=== PATIENT | female | born 1980 | race Caucasian/White ===

== ENCOUNTER 2016-08-29 23:30 | Emergency (ER) | payer OTHER ==
[2016-08-30 00:36] LABS: AMPHETAMINES LEVEL URINE NEGATIVE (NEGATIVE); BENZODIAZEPINES URINE NEGATIVE (NEGATIVE); COCAINE METABOLITE URINE NEGATIVE (NEGATIVE); CONTROL LINE INT CTR LINE PRESENT; METHADONE URINE NEGATIVE (NEGATIVE); OPIATES URINE NEGATIVE (NEGATIVE); TRICYCLIC ANTIDEPRESS URINE NEGATIVE (NEGATIVE)
[2016-08-30 03:02] LABS: BASO % 0.3 % (0.0-1.0); EOS # 0.1 K/mm3 (0.0-0.50); LARGE UNSTAINED CELL # 0.1 K/mm3 (0.0-0.4); LYMPH # 2.1 K/mm3 (1.5-4.5); LYMPH % 36.8 % (24.0-44.0); MEAN CORPUSCULAR HEMOGLOBIN 31.9 pg (27.0-33.0); MEAN CORPUSCULAR HGB CONC 35.9 g/dl (32.0-36.5); MONO # 0.2 K/mm3 (0.0-0.8); NEUTROPHILS # 3.2 K/mm3 (1.8-7.7); NEUTROPHILS % 55.8 % (36.0-66.0); PLATELET COUNT, AUTOMATED 244 k/mm3 (150-450); RED CELL DISTRIBUTION WIDTH 12.5 % (11.5-14.5); WHITE BLOOD COUNT 5.7 K/mm3 (4.0-10.0)
[2016-08-30] MEDS ORDERED: MORPHINE 2 MG/ML 1ML SYRINGE As Ordered ONE (03:20)
[2016-08-30] MEDS ORDERED: ONDANSETRON 4MG/2ML VIAL (J2405) As Ordered ONE (03:20)
[2016-08-30 03:23] LABS: CONTROL LINE HCG INT CTR LINE PRESENT
[2016-08-30 03:30] LABS: ALBUMIN 4.1 GM/DL (3.2-5.2); ALBUMIN/GLOBULIN RATIO 1.21 (1.00-1.93); ALKALINE PHOSPHATASE 59 U/L (45-117); ALT/SGPT 29 U/L (12-78); AMYLASE 75 U/L (25-115); ANION GAP 12 MEQ/L (8-16); AST/SGOT 24 U/L (15-37); BILIRUBIN,DIRECT < 0.1 MG/DL (0.0-0.2); BILIRUBIN,TOTAL 0.3 MG/DL (0.2-1.0); BLOOD UREA NITROGEN 16 MG/DL (7-18); CARBON DIOXIDE LEVEL 25 MEQ/L (21-32); CHLORIDE LEVEL 109 MEQ/L (98-107); CREATININE FOR GFR 0.73 MG/DL (0.55-1.02); GLOMERULAR FILTRATION RATE > 60.0 (>60); GLUCOSE, FASTING 85 MG/DL (70-105); POTASSIUM SERUM 3.8 MEQ/L (3.5-5.1); SODIUM LEVEL 146 MEQ/L (136-145); TOTAL PROTEIN 7.5 GM/DL (6.4-8.2)
[2016-08-30] MEDS ORDERED: METOCLOPRAMIDE INJ 10MG/2ML VIAL (J2765) As Ordered ONE (03:56)
--- NOTE | 2016-08-30 04:30 | REPUSA ---
CLINICAL HISTORY: Abdominal pain. TECHNIQUE: Multiple axial, sagittal and coronal CT images were obtained through the abdomen and pelvi s without administration of oral or IV contrast material. COMMENTS: The liver is of uniform attenuation without mass or defect. There is no intra or extrahepatic biliary ductal dilatation. The spleen is normal. The gallbladder is surgically absent. The pancreas is of no rmal contour and attenuation characteristics. There is no evidence of adrenal mass. Mild fullness of the left collecting system. The kidneys are normal in size, shape and configuration. No renal or ureteral calculi are identified. There is no right hydroureter or hydronephrosis. There is no evidence for appendicitis. There is no bowel wall thickening. No evidence for small or la rge bowel obstruction. There is no evidence of abdominal ascites or lymphadenopathy. There is no evidence of intrinsic or extrinsic bladder mass. There is no pelvic ascites or lymphadeno della. Images of the lung bases show no evidence of pleural or parenchymal mass. There are no pleural effusi ons. The bony structures are free of lytic or blastic lesions. Multilevel degenerative changes are seen in volving the thoracolumbar spine. Scattered calcifications are seen involving the aorta and major branches compatible with atherosclero sis. IMPRESSION: Mild fullness of the left collecting system. Recent passage of a calculus versus an ascending urinary tract infection. Prior cholecystectomy. Thank you for your kind referral of this patient.
--- NOTE | 2016-08-30 05:50 | EDDOCDS ---
Nurse's Notes [facility] Name: Rimma Rae Age: 36 yrs Sex: Female : 1980 Arrival Date: 08/29/2016 Time: 23:30 Bed 9 Private MD: [facility] Diagnosis: Alcoholic gastritis without bleeding;Alcohol use, unspecified with intoxication Presentation: 08/29 23:42 Presenting complaint: Patient states: Left upper quadrant pain that began earlier lf1 today- history of pancreatitis related to alcohol abuse. Pt. reports she started increasing her alcohol intake today and had increased pain in her upper left quadrant. Pain is currently 8/10 with vomiting . Pt. is crying in triage area. Mental Health Triage Level: Level 1- Pt displays no suicidal or homicidal ideations and does not appear to be a danger to self or others. Adult Sepsis Screening: The patient does not have new or worsening altered mentation. Patient has a respiratory rate of greater than or equal to 22 (1 point). Systolic blood pressure is greater than 100. Patient has a qSOFA score of 1- Negative Sepsis Screen. Mental Health Triage Level: Level 1- Pt displays no suicidal or homicidal ideations and does not appear to be a danger to self or others. Suicide/Homicide risk assessment- the patient denies having any suicidal and/or homicidal ideations and does not present with any other emotional, behavioral or mental health complaints. Status: The patient is a dependent. Transition of care: patient was not received from another setting of care. 23:42 Acuity: BERENICE Level 3 lf1 23:42 Method Of Arrival: Wheelchair lf1 Triage Assessment: 23:47 General: Appears distressed, Behavior is anxious, crying, restless. Pain: Location: lf1 left upper quadrant Pain currently is 8 out of 10 on a pain scale. Noted to be crying, moaning. HIV screening NA for this visit Offered previously. Neurological: Level of Consciousness is awake, alert, Oriented to person, place, time. EENT: No deficits noted. Cardiovascular: Chest pain is denied. Respiratory: Respiratory effort is pursed lip, Respiratory pattern is regular. GI: Reports upper abd pain, nausea, vomiting. : No deficits noted. Derm: Skin is normal. Injury Description: No known injury. HUMAN RESOURCE INTERNSHIP: 23:47 4, 1, Living 3, LMP 08/19/2016 lf1 Historical: - Allergies: Phenobarbitalseizure; IVP dye; - Home Meds: 1. none - PMHx: Alcoholism; Hypertension; - PSHx: Carpal Tunnel Repair- Right (November 03, 2014); Cholecystectomy; D & C; Tubal ligation; - Social history: Smoking status: Patient uses tobacco products, current every day smoker. No barriers to communication noted, The patient speaks fluent Micronesian, Speaks appropriately for age, Preferred Language: Micronesian. - Family history: No immediate family members are acutely ill. - : The pt / caregiver states he / she is not on anticoagulants. Home medication list is obtained from the patient. - Exposure Risk Screening:: None identified. Screenin:49 Screening information is obtained from the patient. Fall risk: No risks identified. lf1 Assistance ADL's: requires no assistance with activities of daily living. Abuse/DV Screen: The patient / caregiver reports he/she is: not in a situation that causes fear, pain or injury. Nutritional screening: No deficits noted. Advance Directives: Currently, there is no health care proxy. home support is adequate. Assessment: 08/30 02:58 General: Appears in no apparent distress, uncomfortable, Behavior is anxious, nn1 appropriate for age, cooperative. General: Patient reports intensity of pain is intermittent. Patient reports vomiting comes with severe pain. . Pain: Location: left low back and left upper quadrant. Pain: Quality of pain is described as aching, sharp. Neurological: Level of Consciousness is awake, alert, obeys commands. Respiratory: Airway is patent Respiratory effort is even, unlabored, Respiratory pattern is regular, symmetrical, Breath sounds are clear bilaterally. GI: Abdomen is non- distended Pt is actively vomiting bile, Bowel sounds present X 4 quads. Abd is soft X 4 quads Abd is tender to palpation in left upper quadrant and left lower quadrant Reports nausea, vomiting, intolerance of fluids. Derm: Skin is pink, warm & dry. 04:14 General: Patient was actively vomiting, patient medicated per orders. . Neurological: nn1 Level of Consciousness is awake, alert, obeys commands. 04:56 General: Patient ambulated to restroom, gait is steady. Patient reports nausea, states nn1 pain has improved at this time. . 05:08 General: Patient reports she continues to feel nauseous but nausea has improved. nn1 Patient states pain continues to be 5/10, states she believes this is due to the dry heaving. . 05:45 General: Appears in no apparent distress, comfortable, Behavior is appropriate for age, nn1 cooperative. Neurological: Level of Consciousness is awake, alert. Respiratory: Airway is patent Respiratory effort is even, unlabored, Respiratory pattern is regular, symmetrical. Derm: Skin is pink, warm & dry. 05:49 Pain: Pain currently is 4 out of 10 on a pain scale. nn1 Vital Signs: 08/29 23:32 BP 167 / 112; Pulse 104; Resp 24 S; Pulse Ox 100% on R/A; Weight 83.91 kg (R); Height 5 dd6 ft. 6 in. (167.64 cm) (R); 08/30 00:44 BP 140 / 63 (auto/); nn1 00:44 Pulse 100 MON; Pulse Ox 92% ; nn1 01:01 BP 136 / 89; Pulse 102; Resp 18; Temp 96.4; Pulse Ox 98% ; Pain 9/10; jlm 01:46 BP 130 / 74 (auto/); nn1 01:47 Pulse 76 MON; Pulse Ox 96% ; nn1 02:56 Pulse 80 MON; Pulse Ox 96% ; nn1 02:56 BP 129 / 72 (auto/); nn1 03:26 BP 130 / 74 (auto/); nn1 03:26 Pulse 74 MON; Pulse Ox 98% ; nn1 03:56 BP 126 / 76 (auto/); nn1 03:56 Pulse 70 MON; Pulse Ox 99% ; nn1 04:26 BP 121 / 90 (auto/); nn1 04:26 Pulse 78 MON; Pulse Ox 98% ; nn1 05:48 BP 103 / 67; Pulse 70; Resp 20; Temp 97.5(TE); Pulse Ox 96% on R/A; Pain 4/10; nn1 08/29 23:32 Body Mass Index 29.86 (83.91 kg, 167.64 cm) dd6 Vitals: 08/29 23:32 Log In Time: August 29, 2016 at 23:30. dd6 ED Course: 23:32 Patient visited by Kosta Singh, BERKLEY. dd6 23:32 [facility] [place] Physician. dd6 23:32 Patient moved to Waiting dd6 23:34 Patient moved to Pre RCE dd6 23:45 Triage Initiated lf1 08/30 00:04 Urine Toxicology Sent. ajs 00:04 Urinalysis Sent. ajs 00:07 Patient visited by Melisa Perez. ajs 00:35 pt was observed outside being wheeled back towards the ER entrance by significant other.ajs 01:03 Patient visited by Marilu Iverson, Glass Sander Belt. jlm 02:37 Patient moved to 9 sls1 02:41 Kavin Dumas DO is Attending Physician. mm11 02:41 Patient visited by Kavin Dumas DO. mm11 02:57 ETOH Sent. nn1 02:57 HCG,Serum Qualitative Sent. nn1 02:57 Amylase Sent. nn1 02:57 Basic Metabolic Profile Sent. nn1 02:57 CBC with Diff Sent. nn1 02:57 Lipase Sent. nn1 02:57 Liver Profile Sent. nn1 02:59 Inserted saline lock: 20 gauge in left antecubital area and blood collected. The nn1 patient tolerated the procedure well. 03:13 Patient visited by Sara Hood RN. nn1 03:18 Patient visited by Kavin Dumas DO. mm11 04:03 Patient visited by Kavin Dumas DO. mm11 04:36 CT ABD & PELVIS: No Contrast Returned. EDMS 04:38 Patient visited by Sara Hood RN. nn1 05:08 [facility] Payment Agreement was scanned into [employer] and attached to record. [facility] 05:15 Patient visited by Kavin Dumas DO. mm11 05:22 [facility] [place] Referral Physician. mm11 05:47 No procedures done that require assistance. nn1 05:48 The patient / caregiver is instructed regarding the plan of care and ED course. nn1 Administered Medications: 02:57 Drug: NS 0.9% 1000 ml [sodium chloride 0.9 % intravenous solution] Route: IV; Rate: nn1 bolus; Site: left antecubital; 03:24 Drug: morphine 2 mg [morphine 4 mg/mL intravenous cartridge (0.5 mL)] Route: IVP; Site: nn1 left antecubital; 03:24 Drug: Ondansetron 4 mg [ondansetron HCl 2 mg/mL intravenous solution (2 mL)] Route: nn1 IVP; Site: left antecubital; 04:14 Drug: Metoclopramide 10 mg [metoclopramide 5 mg/mL injection solution] Route: IV; Rate: nn1 40 mg/hr; Infused Over: 15 mins; Site: left antecubital; Point of Care Testing: Urine : 00:06 hCG Reading: Negative; Control Reading: Positive; ajs Ranges: Order Results: Lab Order: Urinalysis; SPEC'M 08/30/16 00:04 Test: APPEARANCE, URINE; Value: HAZY; Range: CLEAR; Status: F Test: COLOR, URINE; Value: YELLOW; Range: YELLOW; Status: F Test: PH,URINE; Value: 6.0; Range: 5.0-9.0; Units: UNITS; Status: F Test: SPECIFIC GRAVITY URINE AUTO; Value: 1.010; Range: 1.002-1.035; Status: F Test: PROTEIN, URINE AUTO; Value: NEGATIVE; Range: NEGATIVE; Units: mg/dL; Status: F Test: GLUCOSE, URINE (UA) AUTO; Value: NEGATIVE; Range: NEGATIVE; Units: mg/dL; Status: F Test: KETONE, URINE AUTO; Value: NEGATIVE; Range: NEGATIVE; Units: mg/dL; Status: F Test: UROBILINOGEN, URINE AUTO; Value: 0.2; Range: 0.0-2.0; Units: mg/dL; Status: F Test: BILIRUBIN, URINE AUTO; Value: NEGATIVE; Range: NEGATIVE; Status: F Test: NITRITE, URINE AUTO; Value: NEGATIVE; Range: NEGATIVE; Status: F Test: LEUKOCYTE ESTERASE, URINE AUTO; Value: NEGATIVE; Range: NEGATIVE; Status: F Test: BLOOD, URINE BLOOD; Value: 2+; Range: NEGATIVE; Abnormal: Above high normal; Status: F Test: WBC, URINE AUTO; Value: 1; Range: 0-3; Units: /HPF; Status: F Test: RBC, URINE AUTO; Value: 3; Range: 0-3; Units: /HPF; Status: F Test: BACTERIA, URINE AUTO; Value: NEGATIVE; Range: NEGATIVE; Status: F Test: SQUAMOUS EPITHELIAL CELL UR AU; Value: 5; Range: 0-6; Units: /HPF; Status: F Test: MUCUS, URINE; Value: SMALL; Range: NEGATIVE; Status: F Test: HYALINE CAST, URINE AUTO; Value: 0; Range: 0-1; Units: /LPF; Status: F Lab Order: Urine Toxicology; SPEC'M 08/30/16 00:04 Test: AMPHETAMINES LEVEL URINE; Value: NEGATIVE; Range: NEGATIVE; Status: F Test: BARBITURATES URINE; Value: NEGATIVE; Range: NEGATIVE; Status: F Test: BENZODIAZEPINES URINE; Value: NEGATIVE; Range: NEGATIVE; Status: F Test: CANNABINOIDS URINE; Value: NEGATIVE; Range: NEGATIVE; Status: F Test: COCAINE METABOLITE URINE; Value: NEGATIVE; Range: NEGATIVE; Status: F Test: METHADONE URINE; Value: NEGATIVE; Range: NEGATIVE; Status: F Test: OPIATES URINE; Value: NEGATIVE; Range: NEGATIVE; Status: F Test: TRICYCLIC ANTIDEPRESS URINE; Value: NEGATIVE; Range: NEGATIVE; Status: F Test Note: ; ALL PRESUMPTIVE POSITIVE FINDINGS ARE UNCONFIRMED NORMAL VALUES THRESHOLD IN NG/ML AMPHETAMINES 1000 METHAMPHETAMINES 1000 BARBITURATES 300 BENZODIAZEPINES 300 CANNABINOIDS (THC) 50 COCAINE METABOLITE 300 METHADONE 300 OPIATES 300 PHENCYCLIDINE 25 TRICYCLIC ANTIDEPRESSANTS 1000 RESULTS ARE FOR MEDICAL PURPOSES ONLY. ALL URINE SPECIMENS WILL BE SAVED FOR 3 DAYS. IF CONFIRMATION OF A PRESUMPTIVE POSTIVE SCREEN RESULT IS DESIRED, CALL CHEMISTRY ([phone]) AND REQUEST URINE TO BE SENT TO REFERENCE LAB. FOR A LIST OF CLOSELY RELATED COMPOUNDS PLEASE CALL THE LAB. Lab Order: Amylase; SPEC'M 08/30/16 02:55 Test: AMYLASE; Value: 75; Range: 25-115; Units: U/L; Status: F Lab Order: Basic Metabolic Profile; SPEC'M 08/30/16 02:55 Test: GLUCOSE, FASTING; Value: 85; Range: 70-105; Units: MG/DL; Status: F Test: BLOOD UREA NITROGEN; Value: 16; Range: 7-18; Units: MG/DL; Status: F Test: CREATININE FOR GFR; Value: 0.73; Range: 0.55-1.02; Units: MG/DL; Status: F Test: SODIUM LEVEL; Range: 136-145; Units: MEQ/L; Status: I Test: POTASSIUM SERUM; Range: 3.5-5.1; Units: MEQ/L; Status: I Test: CHLORIDE LEVEL; Range: 98-107; Units: MEQ/L; Status: I Test: CARBON DIOXIDE LEVEL; Range: 21-32; Units: MEQ/L; Status: I Test: ANION GAP; Range: 8-16; Units: MEQ/L; Status: I Test: CALCIUM LEVEL; Range: 8.5-10.1; Units: MG/DL; Status: I Test: GLOMERULAR FILTRATION RATE; Value: > 60.0; Range: >60; Status: F Test: SODIUM LEVEL; Value: 146; Range: 136-145; Abnormal: Above high normal; Units: MEQ/L; Status: F Test: POTASSIUM SERUM; Value: 3.8; Range: 3.5-5.1; Units: MEQ/L; Status: F Test: CHLORIDE LEVEL; Value: 109; Range: 98-107; Abnormal: Above high normal; Units: MEQ/L; Status: F Test: CARBON DIOXIDE LEVEL; Value: 25; Range: 21-32; Units: MEQ/L; Status: F Test: ANION GAP; Value: 12; Range: 8-16; Units: MEQ/L; Status: F Test: CALCIUM LEVEL; Value: 8.0; Range: 8.5-10.1; Abnormal: Below low normal; Units: MG/DL; Status: F Test Note: ; Units are mL/min/1.73 m2 Chronic Kidney Disease Staging per NKF: Stage I & II GFR >=60 Normal to Mildly Decreased Stage III GFR 30-59 Moderately Decreased Stage IV GFR 15-29 Severely Decreased Stage V GFR <15 Very Little GFR Left ESRD GFR <15 on LOG DRIVER Lab Order: CBC with Diff; SPEC'M 08/30/16 02:55 Test: WHITE BLOOD COUNT; Value: 5.7; Range: 4.0-10.0; Units: K/mm3; Status: F Test: RED BLOOD COUNT; Value: 3.97; Range: 4.00-5.40; Abnormal: Below low normal; Units: M/mm3; Status: F Test: HEMOGLOBIN; Value: 12.7; Range: 12.0-16.0; Units: g/dl; Status: F Test: HEMATOCRIT; Value: 35.3; Range: 36.0-47.0; Abnormal: Below low normal; Units: %; Status: F Test: MEAN CORPUSCULAR VOLUME; Value: 89.0; Range: 80.0-96.0; Units: fl; Status: F Test: MEAN CORPUSCULAR HEMOGLOBIN; Value: 31.9; Range: 27.0-33.0; Units: pg; Status: F Test: MEAN CORPUSCULAR HGB CONC; Value: 35.9; Range: 32.0-36.5; Units: g/dl; Status: F Test: RED CELL DISTRIBUTION WIDTH; Value: 12.5; Range: 11.5-14.5; Units: %; Status: F Test: PLATELET COUNT, AUTOMATED; Value: 244; Range: 150-450; Units: k/mm3; Status: F Test: NEUTROPHILS %; Value: 55.8; Range: 36.0-66.0; Units: %; Status: F Test: LYMPH %; Value: 36.8; Range: 24.0-44.0; Units: %; Status: F Test: MONO %; Value: 4.0; Range: 0.0-5.0; Units: %; Status: F Test: EOS %; Value: 1.0; Range: 0.0-3.0; Units: %; Status: F Test: BASO %; Value: 0.3; Range: 0.0-1.0; Units: %; Status: F Test: LARGE UNSTAINED CELL %; Value: 2.0; Range: 0.0-4.0; Units: %; Status: F Test: NEUTROPHILS #; Value: 3.2; Range: 1.8-7.7; Units: K/mm3; Status: F Test: LYMPH #; Value: 2.1; Range: 1.5-4.5; Units: K/mm3; Status: F Test: MONO #; Value: 0.2; Range: 0.0-0.8; Units: K/mm3; Status: F Test: EOS #; Value: 0.1; Range: 0.0-0.50; Units: K/mm3; Status: F Test: BASO #; Value: 0.0; Range: 0.0-0.2; Units: K/mm3; Status: F Test: LARGE UNSTAINED CELL #; Value: 0.1; Range: 0.0-0.4; Units: K/mm3; Status: F Lab Order: Lipase; SPEC'M 08/30/16 02:55 Test: LIPASE; Value: 193; Range: 73-393; Units: U/L; Status: F Lab Order: Liver Profile; SPEC'M 08/30/16 02:55 Test: AST/SGOT; Value: 24; Range: 15-37; Units: U/L; Status: F Test: ALT/SGPT; Value: 29; Range: 12-78; Units: U/L; Status: F Test: ALKALINE PHOSPHATASE; Value: 59; Range: 45-117; Units: U/L; Status: F Test: BILIRUBIN,TOTAL; Value: 0.3; Range: 0.2-1.0; Units: MG/DL; Status: F Test: BILIRUBIN,DIRECT; Value: < 0.1; Range: 0.0-0.2; Units: MG/DL; Status: F Test: TOTAL PROTEIN; Value: 7.5; Range: 6.4-8.2; Units: GM/DL; Status: F Test: ALBUMIN; Value: 4.1; Range: 3.2-5.2; Units: GM/DL; Status: F Test: ALBUMIN/GLOBULIN RATIO; Value: 1.21; Range: 1.00-1.93; Status: F Lab Order: HCG,Serum Qualitative; 08/30/16 02:55 Test: HCG, SERUM QUALITATIVE; Value: NEGATIVE; Range: NEGATIVE; Status: F Lab Order: ETOH; SPECM 08/30/16 02:55 Test: ETHYL ALCOHOL (ETHANOL); Value: 0.221; Range: 0.000-0.010; Abnormal: Above high normal; Units: %; Status: F Radiology Order: CT ABD & PELVIS: No Contrast Test: CT ABD & PELVIS: No Contrast REASON FOR EXAMINATION: luq pain; ; CLINICAL HISTORY: Abdominal pain.; TECHNIQUE: Multiple axial, sagittal and coronal CT images were obtained through the abdomen and pelvi; s without administration of oral or IV contrast material.; COMMENTS:; The liver is of uniform attenuation without mass or defect. There is no intra or extrahepatic biliary; ductal dilatation. The spleen is normal. The gallbladder is surgically absent. The pancreas is of no; rmal contour and attenuation characteristics. There is no evidence of adrenal mass.; Mild fullness of the left collecting system.; The kidneys are normal in size, shape and configuration. No renal or ureteral calculi are identified.; There is no right hydroureter or hydronephrosis.; There is no evidence for appendicitis. There is no bowel wall thickening. No evidence for small or la; rge bowel obstruction. There is no evidence of abdominal ascites or lymphadenopathy.; There is no evidence of intrinsic or extrinsic bladder mass. There is no pelvic ascites or lymphadeno; della.; Images of the lung bases show no evidence of pleural or parenchymal mass. There are no pleural effusi; ons.; The bony structures are free of lytic or blastic lesions. Multilevel degenerative changes are seen in; volving the thoracolumbar spine.; Scattered calcifications are seen involving the aorta and major branches compatible with atherosclero; sis.; IMPRESSION:; Mild fullness of the left collecting system. Recent passage of a calculus versus an ascending urinary; tract infection.; Prior cholecystectomy.; Thank you for your kind referral of this patient.; ; Outcome: 05:22 Discharge ordered by Provider. mm11 05:45 Discharge Assessment: Patient awake, alert and oriented x 3. No cognitive and/or nn1 functional deficits noted. Patient verbalized understanding of disposition instructions. patient administered narcotics - yes. Pt provided with safe discharge. The following High Risk Discharge criteria are identified: None. Discharged to home ambulatory, with family. Condition: improved. CT Study completed. Property :Personal belongings accompany Pt. 05:49 Patient left the ED. nn1 Signatures: Dispatcher [employer] EDMS Lakesha Murray,RN RN lf1 Kavin Dumas DO DO mm11 Kosta Singh, PROGRAM ADMIN PROGRAM ADMIN dd6 Melisa Perez Shannon, RN RN sls1 Mariul Iverson, Glass Sander Belt Unit Jeanie Alvarez Nikkole,RN RN nn1 MTDD
--- NOTE | 2016-08-30 05:50 | EDDOCDS ---
Physician Documentation [facility] Name: Rimma Rae Age: 36 yrs Sex: Female : 1980 Arrival Date: 08/29/2016 Time: 23:30 Bed 9 Private MD: MARII Knott Disposition: 08/30/16 05:22 Discharged to Home/Self Care. Impression: Alcoholic gastritis without bleeding, Alcohol use, unspecified with intoxication. - Condition is Stable. - Discharge Instructions: Alcohol Intoxication, Gastritis, Adult, Gastritis, Adult, [id number], Alcohol Intoxication, [id number]. - Medication Reconciliation, Local Pharmacy Hours form. - Follow up: MARII Knott; When: Call to arrange an appointment; Reason: Continuance of care. - Problem is an acute exacerbation. - Symptoms have improved. - Notes: AVOID ALL ALCOHOL. Historical: - Allergies: Phenobarbitalseizure; IVP dye; - Home Meds: 1. none - PMHx: Alcoholism; Hypertension; - PSHx: Carpal Tunnel Repair- Right (November 03, 2014); Cholecystectomy; D & C; Tubal ligation; - Social history: Smoking status: Patient uses tobacco products, current every day smoker. No barriers to communication noted, The patient speaks fluent Cymraes, Speaks appropriately for age, Preferred Language: Cymraes. - Family history: No immediate family members are acutely ill. - : The pt / caregiver states he / she is not on anticoagulants. Home medication list is obtained from the patient. - Exposure Risk Screening:: None identified. 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 6 in. (167.64 cm) (R); 08/30 00:44 BP 140 / 63 (auto/); nn1 00:44 Pulse 100 MON; Pulse Ox 92% ; nn1 01:01 BP 136 / 89; Pulse 102; Resp 18; Temp 96.4; Pulse Ox 98% ; Pain 9/10; jlm 01:46 BP 130 / 74 (auto/); nn1 01:47 Pulse 76 MON; Pulse Ox 96% ; nn1 02:56 Pulse 80 MON; Pulse Ox 96% ; nn1 02:56 BP 129 / 72 (auto/); nn1 03:26 BP 130 / 74 (auto/); nn1 03:26 Pulse 74 MON; Pulse Ox 98% ; nn1 03:56 BP 126 / 76 (auto/); nn1 03:56 Pulse 70 MON; Pulse Ox 99% ; nn1 04:26 BP 121 / 90 (auto/); nn1 04:26 Pulse 78 MON; Pulse Ox 98% ; nn1 05:48 BP 103 / 67; Pulse 70; Resp 20; Temp 97.5(TE); Pulse Ox 96% on R/A; Pain 4/10; nn1 08/29 23:32 Body Mass Index 29.86 (83.91 kg, 167.64 cm) dd6 MDM: 00:02 UCG by Nursing ordered. dt4 00:03 Urinalysis Ordered. EDMS 00:03 Urine Toxicology Ordered. EDMS 02:42 NS 0.9% 1000 ml IV at bolus once ordered. mm11 02:42 IV Saline Lock ordered. mm11 02:42 Undress patient appropriately for examination ordered. mm11 02:42 Amylase Ordered. EDMS 02:42 Basic Metabolic Profile Ordered. EDMS 02:42 CBC with Diff Ordered. EDMS 02:42 Lipase Ordered. EDMS 02:42 Liver Profile Ordered. EDMS 02:42 HCG,Serum Qualitative Ordered. EDMS 02:42 ETOH Ordered. EDMS 02:43 NOTHING BY MOUTH+DIET ordered. EDMS 03:09 Urinalysis Reviewed. mm11 03:09 CBC with Diff Reviewed. mm11 03:09 Urine Toxicology Reviewed. mm11 03:18 morphine 2 mg IVP once ordered. mm11 03:18 Ondansetron 4 mg IVP once ordered. mm11 03:32 Basic Metabolic Profile Reviewed. mm11 03:32 ETOH Reviewed. mm11 03:32 Amylase Reviewed. mm11 03:32 Lipase Reviewed. mm11 03:32 Liver Profile Reviewed. mm11 03:32 HCG,Serum Qualitative Reviewed. mm11 03:47 Metoclopramide 10 mg IV at 40 mg/hr once over 15 mins ordered. mm11 03:54 CT ABD & PELVIS: No Contrast Ordered. EDMS 04:58 CT ABD & PELVIS: No Contrast Reviewed. mm11 04:59 Financial registration complete. [facility] 05:08 [facility] Payment Agreement was scanned into [employer] and attached to record. [facility] Point of Care Testing: Urine : 00:06 hCG Reading: Negative; Control Reading: Positive; ajs Ranges: Administered Medications: 02:57 Drug: NS 0.9% 1000 ml [sodium chloride 0.9 % intravenous solution] Route: IV; Rate: nn1 bolus; Site: left antecubital; 03:24 Drug: morphine 2 mg [morphine 4 mg/mL intravenous cartridge (0.5 mL)] Route: IVP; Site: nn1 left antecubital; 03:24 Drug: Ondansetron 4 mg [ondansetron HCl 2 mg/mL intravenous solution (2 mL)] Route: nn1 IVP; Site: left antecubital; 04:14 Drug: Metoclopramide 10 mg [metoclopramide 5 mg/mL injection solution] Route: IV; Rate: nn1 40 mg/hr; Infused Over: 15 mins; Site: left antecubital; Signatures: Dispatcher [facility] EDLakesha Armas,RN RN lf1 Kavin Dumas DO DO mm11 Pamela Flores PA-C PAGarrett dt4 Jeanie Ashton [facility] Sara HoodRN RN nn1 The chart was reviewed and I authenticate all verbal orders and agree with the evaluation and treatment provided.Corrections: (The following items were deleted from the chart) 04:07 03:48 CT ABD & PELVIS WITH CONTRAST+CT ordered. EDMS EDMS Attachments: 05:08 [facility] Payment Agreement [facility] MTDD
--- NOTE | 2016-09-01 06:50 | EDDOCDS ---
Physician Documentation [facility] Name: Rimma Rae Age: 36 yrs Sex: Female : 1980 Arrival Date: 08/29/2016 Time: 23:30 Bed 9 Private MD: MARII Knott Disposition: 08/30/16 05:22 Discharged to Home/Self Care. Impression: Alcoholic gastritis without bleeding, Alcohol use, unspecified with intoxication. - Condition is Stable. - Discharge Instructions: Alcohol Intoxication, Gastritis, Adult, Gastritis, Adult, [id number], Alcohol Intoxication, [id number]. - Medication Reconciliation, Local Pharmacy Hours form. - Follow up: MARII Knott; When: Call to arrange an appointment; Reason: Continuance of care. - Problem is an acute exacerbation. - Symptoms have improved. - Notes: AVOID ALL ALCOHOL. Historical: - Allergies: Phenobarbitalseizure; IVP dye; - Home Meds: 1. none - PMHx: Alcoholism; Hypertension; - PSHx: Carpal Tunnel Repair- Right (November 03, 2014); Cholecystectomy; D & C; Tubal ligation; - Social history: Smoking status: Patient uses tobacco products, current every day smoker. No barriers to communication noted, The patient speaks fluent [place], Speaks appropriately for age, Preferred Language: [place] African. - Family history: No immediate family members are acutely ill. - : The pt / caregiver states he / she is not on anticoagulants. Home medication list is obtained from the patient. - Exposure Risk Screening:: None identified. 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 6 in. (167.64 cm) (R); 08/30 00:44 BP 140 / 63 (auto/); nn1 00:44 Pulse 100 MON; Pulse Ox 92% ; nn1 01:01 BP 136 / 89; Pulse 102; Resp 18; Temp 96.4; Pulse Ox 98% ; Pain 9/10; jlm 01:46 BP 130 / 74 (auto/); nn1 01:47 Pulse 76 MON; Pulse Ox 96% ; nn1 02:56 Pulse 80 MON; Pulse Ox 96% ; nn1 02:56 BP 129 / 72 (auto/); nn1 03:26 BP 130 / 74 (auto/); nn1 03:26 Pulse 74 MON; Pulse Ox 98% ; nn1 03:56 BP 126 / 76 (auto/); nn1 03:56 Pulse 70 MON; Pulse Ox 99% ; nn1 04:26 BP 121 / 90 (auto/); nn1 04:26 Pulse 78 MON; Pulse Ox 98% ; nn1 05:48 BP 103 / 67; Pulse 70; Resp 20; Temp 97.5(TE); Pulse Ox 96% on R/A; Pain 4/10; nn1 08/29 23:32 Body Mass Index 29.86 (83.91 kg, 167.64 cm) dd6 MDM: 00:02 UCG by Nursing ordered. dt4 00:03 Urinalysis Ordered. EDMS 00:03 Urine Toxicology Ordered. EDMS 02:42 NS 0.9% 1000 ml IV at bolus once ordered. mm11 02:42 IV Saline Lock ordered. mm11 02:42 Undress patient appropriately for examination ordered. mm11 02:42 Amylase Ordered. EDMS 02:42 Basic Metabolic Profile Ordered. EDMS 02:42 CBC with Diff Ordered. EDMS 02:42 Lipase Ordered. EDMS 02:42 Liver Profile Ordered. EDMS 02:42 HCG,Serum Qualitative Ordered. EDMS 02:42 ETOH Ordered. EDMS 02:43 NOTHING BY MOUTH+DIET ordered. EDMS 03:09 Urinalysis Reviewed. mm11 03:09 CBC with Diff Reviewed. mm11 03:09 Urine Toxicology Reviewed. mm11 03:18 morphine 2 mg IVP once ordered. mm11 03:18 Ondansetron 4 mg IVP once ordered. mm11 03:32 Basic Metabolic Profile Reviewed. mm11 03:32 ETOH Reviewed. mm11 03:32 Amylase Reviewed. mm11 03:32 Lipase Reviewed. mm11 03:32 Liver Profile Reviewed. mm11 03:32 HCG,Serum Qualitative Reviewed. mm11 03:47 Metoclopramide 10 mg IV at 40 mg/hr once over 15 mins ordered. mm11 03:54 CT ABD & PELVIS: No Contrast Ordered. EDMS 04:58 CT ABD & PELVIS: No Contrast Reviewed. mm11 04:59 Financial registration complete. [facility] 05:08 [facility] Payment Agreement was scanned into [employer] and attached to record. [facility] 07:51 T-Sheet-- Draft Copy was scanned into [employer] and attached to record. 13:29 Radiology Report was scanned into [employer] and attached to record. Point of Care Testing: Urine : 00:06 hCG Reading: Negative; Control Reading: Positive; ajs Ranges: Administered Medications: 02:57 Drug: NS 0.9% 1000 ml [sodium chloride 0.9 % intravenous solution] Route: IV; Rate: nn1 bolus; Site: left antecubital; 03:24 Drug: morphine 2 mg [morphine 4 mg/mL intravenous cartridge (0.5 mL)] Route: IVP; Site: nn1 left antecubital; 03:24 Drug: Ondansetron 4 mg [ondansetron HCl 2 mg/mL intravenous solution (2 mL)] Route: nn1 IVP; Site: left antecubital; 04:14 Drug: Metoclopramide 10 mg [metoclopramide 5 mg/mL injection solution] Route: IV; Rate: nn1 40 mg/hr; Infused Over: 15 mins; Site: left antecubital; Signatures: Dispatcher [employer] EDMS Patrizia Knolwes, Jr Reg Lakesha Murray,YOSVANY RN lf1 Kavin Dumas DO DO mm11 Pamela Flores PA-C PA-C dt4 Jeanie Ashton [facility] Sara Hood,RN RN nn1 The chart was reviewed and I authenticate all verbal orders and agree with the evaluation and treatment provided.Corrections: (The following items were deleted from the chart) 04:07 03:48 CT ABD & PELVIS WITH CONTRAST+CT ordered. EDMS EDMS Attachments: 05:08 [facility] Payment Agreement [email or web address] 07:51 T-Sheet-- Draft Copy Chart Complete MTDD
--- NOTE | 2016-09-01 06:50 | EDDOCDS ---
Physician Documentation [facility] Name: Rimma Rae Age: 36 yrs Sex: Female : 1980 Arrival Date: 08/29/2016 Time: 23:30 Bed 9 Private MD: MARII Knott Disposition: 08/30/16 05:22 Discharged to Home/Self Care. Impression: Alcoholic gastritis without bleeding, Alcohol use, unspecified with intoxication. - Condition is Stable. - Discharge Instructions: Alcohol Intoxication, Gastritis, Adult, Gastritis, Adult, [id number], Alcohol Intoxication, [id number]. - Medication Reconciliation, Local Pharmacy Hours form. - Follow up: MARII Knott; When: Call to arrange an appointment; Reason: Continuance of care. - Problem is an acute exacerbation. - Symptoms have improved. - Notes: AVOID ALL ALCOHOL. Historical: - Allergies: Phenobarbitalseizure; IVP dye; - Home Meds: 1. none - PMHx: Alcoholism; Hypertension; - PSHx: Carpal Tunnel Repair- Right (November 03, 2014); Cholecystectomy; D & C; Tubal ligation; - Social history: Smoking status: Patient uses tobacco products, current every day smoker. No barriers to communication noted, The patient speaks fluent [place], Speaks appropriately for age, Preferred Language: [place]se. - Family history: No immediate family members are acutely ill. - : The pt / caregiver states he / she is not on anticoagulants. Home medication list is obtained from the patient. - Exposure Risk Screening:: None identified. 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 6 in. (167.64 cm) (R); 08/30 00:44 BP 140 / 63 (auto/); nn1 00:44 Pulse 100 MON; Pulse Ox 92% ; nn1 01:01 BP 136 / 89; Pulse 102; Resp 18; Temp 96.4; Pulse Ox 98% ; Pain 9/10; jlm 01:46 BP 130 / 74 (auto/); nn1 01:47 Pulse 76 MON; Pulse Ox 96% ; nn1 02:56 Pulse 80 MON; Pulse Ox 96% ; nn1 02:56 BP 129 / 72 (auto/); nn1 03:26 BP 130 / 74 (auto/); nn1 03:26 Pulse 74 MON; Pulse Ox 98% ; nn1 03:56 BP 126 / 76 (auto/); nn1 03:56 Pulse 70 MON; Pulse Ox 99% ; nn1 04:26 BP 121 / 90 (auto/); nn1 04:26 Pulse 78 MON; Pulse Ox 98% ; nn1 05:48 BP 103 / 67; Pulse 70; Resp 20; Temp 97.5(TE); Pulse Ox 96% on R/A; Pain 4/10; nn1 08/29 23:32 Body Mass Index 29.86 (83.91 kg, 167.64 cm) dd6 MDM: 00:02 UCG by Nursing ordered. dt4 00:03 Urinalysis Ordered. EDMS 00:03 Urine Toxicology Ordered. EDMS 02:42 NS 0.9% 1000 ml IV at bolus once ordered. mm11 02:42 IV Saline Lock ordered. mm11 02:42 Undress patient appropriately for examination ordered. mm11 02:42 Amylase Ordered. EDMS 02:42 Basic Metabolic Profile Ordered. EDMS 02:42 CBC with Diff Ordered. EDMS 02:42 Lipase Ordered. EDMS 02:42 Liver Profile Ordered. EDMS 02:42 HCG,Serum Qualitative Ordered. EDMS 02:42 ETOH Ordered. EDMS 02:43 NOTHING BY MOUTH+DIET ordered. EDMS 03:09 Urinalysis Reviewed. mm11 03:09 CBC with Diff Reviewed. mm11 03:09 Urine Toxicology Reviewed. mm11 03:18 morphine 2 mg IVP once ordered. mm11 03:18 Ondansetron 4 mg IVP once ordered. mm11 03:32 Basic Metabolic Profile Reviewed. mm11 03:32 ETOH Reviewed. mm11 03:32 Amylase Reviewed. mm11 03:32 Lipase Reviewed. mm11 03:32 Liver Profile Reviewed. mm11 03:32 HCG,Serum Qualitative Reviewed. mm11 03:47 Metoclopramide 10 mg IV at 40 mg/hr once over 15 mins ordered. mm11 03:54 CT ABD & PELVIS: No Contrast Ordered. EDMS 04:58 CT ABD & PELVIS: No Contrast Reviewed. mm11 04:59 Financial registration complete. [facility] 05:08 [facility] Payment Agreement was scanned into [employer] and attached to record. [facility] 07:51 T-Sheet-- Draft Copy was scanned into [employer] and attached to record. 13:29 Radiology Report was scanned into [employer] and attached to record. Point of Care Testing: Urine : 00:06 hCG Reading: Negative; Control Reading: Positive; ajs Ranges: Administered Medications: 02:57 Drug: NS 0.9% 1000 ml [sodium chloride 0.9 % intravenous solution] Route: IV; Rate: nn1 bolus; Site: left antecubital; 03:24 Drug: morphine 2 mg [morphine 4 mg/mL intravenous cartridge (0.5 mL)] Route: IVP; Site: nn1 left antecubital; 03:24 Drug: Ondansetron 4 mg [ondansetron HCl 2 mg/mL intravenous solution (2 mL)] Route: nn1 IVP; Site: left antecubital; 04:14 Drug: Metoclopramide 10 mg [metoclopramide 5 mg/mL injection solution] Route: IV; Rate: nn1 40 mg/hr; Infused Over: 15 mins; Site: left antecubital; Signatures: Dispatcher [employer] EDMS Patrizia Knowles, Jr Reg Lakesha Murray,YOSVANY RN lf1 Kavin Dumas DO DO mm11 Pamela Flores PA-C PA-C dt4 Jeanie Ashton [facility] Sara Hood,RN RN nn1 The chart was reviewed and I authenticate all verbal orders and agree with the evaluation and treatment provided.Corrections: (The following items were deleted from the chart) 04:07 03:48 CT ABD & PELVIS WITH CONTRAST+CT ordered. EDMS EDMS Attachments: 05:08 [facility] Payment Agreement [facility] 07:51 T-Sheet-- Draft Copy Chart Complete MTDD
--- NOTE | 2016-09-01 06:50 | EDDOCDS ---
Nurse's Notes [facility] Name: Rimma Rae Age: 36 yrs Sex: Female : 1980 Arrival Date: 08/29/2016 Time: 23:30 Bed 9 Private MD: [facility] Diagnosis: Alcoholic gastritis without bleeding;Alcohol use, unspecified with intoxication Presentation: 08/29 23:42 Presenting complaint: Patient states: Left upper quadrant pain that began earlier lf1 today- history of pancreatitis related to alcohol abuse. Pt. reports she started increasing her alcohol intake today and had increased pain in her upper left quadrant. Pain is currently 8/10 with vomiting . Pt. is crying in triage area. Mental Health Triage Level: Level 1- Pt displays no suicidal or homicidal ideations and does not appear to be a danger to self or others. Adult Sepsis Screening: The patient does not have new or worsening altered mentation. Patient has a respiratory rate of greater than or equal to 22 (1 point). Systolic blood pressure is greater than 100. Patient has a qSOFA score of 1- Negative Sepsis Screen. Mental Health Triage Level: Level 1- Pt displays no suicidal or homicidal ideations and does not appear to be a danger to self or others. Suicide/Homicide risk assessment- the patient denies having any suicidal and/or homicidal ideations and does not present with any other emotional, behavioral or mental health complaints. Status: The patient is a dependent. Transition of care: patient was not received from another setting of care. 23:42 Acuity: BERENICE Level 3 lf1 23:42 Method Of Arrival: Wheelchair lf1 Triage Assessment: 23:47 General: Appears distressed, Behavior is anxious, crying, restless. Pain: Location: lf1 left upper quadrant Pain currently is 8 out of 10 on a pain scale. Noted to be crying, moaning. HIV screening NA for this visit Offered previously. Neurological: Level of Consciousness is awake, alert, Oriented to person, place, time. EENT: No deficits noted. Cardiovascular: Chest pain is denied. Respiratory: Respiratory effort is pursed lip, Respiratory pattern is regular. GI: Reports upper abd pain, nausea, vomiting. : No deficits noted. Derm: Skin is normal. Injury Description: No known injury. MATERIALS RECYCLER: 23:47 4, 1, Living 3, LMP 08/19/2016 lf1 Historical: - Allergies: Phenobarbitalseizure; IVP dye; - Home Meds: 1. none - PMHx: Alcoholism; Hypertension; - PSHx: Carpal Tunnel Repair- Right (November 03, 2014); Cholecystectomy; D & C; Tubal ligation; - Social history: Smoking status: Patient uses tobacco products, current every day smoker. No barriers to communication noted, The patient speaks fluent Chadian, Speaks appropriately for age, Preferred Language: Chadian. - Family history: No immediate family members are acutely ill. - : The pt / caregiver states he / she is not on anticoagulants. Home medication list is obtained from the patient. - Exposure Risk Screening:: None identified. Screenin:49 Screening information is obtained from the patient. Fall risk: No risks identified. lf1 Assistance ADL's: requires no assistance with activities of daily living. Abuse/DV Screen: The patient / caregiver reports he/she is: not in a situation that causes fear, pain or injury. Nutritional screening: No deficits noted. Advance Directives: Currently, there is no health care proxy. home support is adequate. Assessment: 08/30 02:58 General: Appears in no apparent distress, uncomfortable, Behavior is anxious, nn1 appropriate for age, cooperative. General: Patient reports intensity of pain is intermittent. Patient reports vomiting comes with severe pain. . Pain: Location: left low back and left upper quadrant. Pain: Quality of pain is described as aching, sharp. Neurological: Level of Consciousness is awake, alert, obeys commands. Respiratory: Airway is patent Respiratory effort is even, unlabored, Respiratory pattern is regular, symmetrical, Breath sounds are clear bilaterally. GI: Abdomen is non- distended Pt is actively vomiting bile, Bowel sounds present X 4 quads. Abd is soft X 4 quads Abd is tender to palpation in left upper quadrant and left lower quadrant Reports nausea, vomiting, intolerance of fluids. Derm: Skin is pink, warm & dry. 04:14 General: Patient was actively vomiting, patient medicated per orders. . Neurological: nn1 Level of Consciousness is awake, alert, obeys commands. 04:56 General: Patient ambulated to restroom, gait is steady. Patient reports nausea, states nn1 pain has improved at this time. . 05:08 General: Patient reports she continues to feel nauseous but nausea has improved. nn1 Patient states pain continues to be 5/10, states she believes this is due to the dry heaving. . 05:45 General: Appears in no apparent distress, comfortable, Behavior is appropriate for age, nn1 cooperative. Neurological: Level of Consciousness is awake, alert. Respiratory: Airway is patent Respiratory effort is even, unlabored, Respiratory pattern is regular, symmetrical. Derm: Skin is pink, warm & dry. 05:49 Pain: Pain currently is 4 out of 10 on a pain scale. nn1 Vital Signs: 08/29 23:32 BP 167 / 112; Pulse 104; Resp 24 S; Pulse Ox 100% on R/A; Weight 83.91 kg (R); Height 5 dd6 ft. 6 in. (167.64 cm) (R); 08/30 00:44 BP 140 / 63 (auto/); nn1 00:44 Pulse 100 MON; Pulse Ox 92% ; nn1 01:01 BP 136 / 89; Pulse 102; Resp 18; Temp 96.4; Pulse Ox 98% ; Pain 9/10; jlm 01:46 BP 130 / 74 (auto/); nn1 01:47 Pulse 76 MON; Pulse Ox 96% ; nn1 02:56 Pulse 80 MON; Pulse Ox 96% ; nn1 02:56 BP 129 / 72 (auto/); nn1 03:26 BP 130 / 74 (auto/); nn1 03:26 Pulse 74 MON; Pulse Ox 98% ; nn1 03:56 BP 126 / 76 (auto/); nn1 03:56 Pulse 70 MON; Pulse Ox 99% ; nn1 04:26 BP 121 / 90 (auto/); nn1 04:26 Pulse 78 MON; Pulse Ox 98% ; nn1 05:48 BP 103 / 67; Pulse 70; Resp 20; Temp 97.5(TE); Pulse Ox 96% on R/A; Pain 4/10; nn1 08/29 23:32 Body Mass Index 29.86 (83.91 kg, 167.64 cm) dd6 Vitals: 08/29 23:32 Log In Time: August 29, 2016 at 23:30. dd6 ED Course: 23:32 Patient visited by Kosta Singh, BERKLEY. dd6 23:32 [facility] is Private Physician. dd6 23:32 Patient moved to Waiting dd6 23:34 Patient moved to Pre RCE dd6 23:45 Triage Initiated lf1 08/30 00:04 Urine Toxicology Sent. ajs 00:04 Urinalysis Sent. ajs 00:07 Patient visited by Melisa Perez. ajs 00:35 pt was observed outside being wheeled back towards the ER entrance by significant other.ajs 01:03 Patient visited by Marilu Iverson, Saw Runner. jlm 02:37 Patient moved to 9 sls1 02:41 Kavin Dumas DO is Attending Physician. mm11 02:41 Patient visited by Kavin Dumas DO. mm11 02:57 ETOH Sent. nn1 02:57 HCG,Serum Qualitative Sent. nn1 02:57 Amylase Sent. nn1 02:57 Basic Metabolic Profile Sent. nn1 02:57 CBC with Diff Sent. nn1 02:57 Lipase Sent. nn1 02:57 Liver Profile Sent. nn1 02:59 Inserted saline lock: 20 gauge in left antecubital area and blood collected. The nn1 patient tolerated the procedure well. 03:13 Patient visited by Sara Hood RN. nn1 03:18 Patient visited by Kavin Dumas DO. mm11 04:03 Patient visited by Kavin Dumas DO. mm11 04:36 CT ABD & PELVIS: No Contrast Returned. EDMS 04:38 Patient visited by Sara Hood RN. nn1 05:08 [facility] Payment Agreement was scanned into [employer] and attached to record. [facility] 05:15 Patient visited by Kavin Dumas DO. mm11 05:22 H[facility] is Referral Physician. mm11 05:47 No procedures done that require assistance. nn1 05:48 The patient / caregiver is instructed regarding the plan of care and ED course. nn1 07:51 T-Sheet-- Draft Copy was scanned into [employer] and attached to record. gb 13:29 Radiology Report was scanned into [employer] and attached to record. gb Administered Medications: 02:57 Drug: NS 0.9% 1000 ml [sodium chloride 0.9 % intravenous solution] Route: IV; Rate: nn1 bolus; Site: left antecubital; 03:24 Drug: morphine 2 mg [morphine 4 mg/mL intravenous cartridge (0.5 mL)] Route: IVP; Site: nn1 left antecubital; 03:24 Drug: Ondansetron 4 mg [ondansetron HCl 2 mg/mL intravenous solution (2 mL)] Route: nn1 IVP; Site: left antecubital; 04:14 Drug: Metoclopramide 10 mg [metoclopramide 5 mg/mL injection solution] Route: IV; Rate: nn1 40 mg/hr; Infused Over: 15 mins; Site: left antecubital; Point of Care Testing: Urine : 00:06 hCG Reading: Negative; Control Reading: Positive; ajs Ranges: Order Results: Lab Order: Urinalysis; SPEC'M 08/30/16 00:04 Test: APPEARANCE, URINE; Value: HAZY; Range: CLEAR; Status: F Test: COLOR, URINE; Value: YELLOW; Range: YELLOW; Status: F Test: PH,URINE; Value: 6.0; Range: 5.0-9.0; Units: UNITS; Status: F Test: SPECIFIC GRAVITY URINE AUTO; Value: 1.010; Range: 1.002-1.035; Status: F Test: PROTEIN, URINE AUTO; Value: NEGATIVE; Range: NEGATIVE; Units: mg/dL; Status: F Test: GLUCOSE, URINE (UA) AUTO; Value: NEGATIVE; Range: NEGATIVE; Units: mg/dL; Status: F Test: KETONE, URINE AUTO; Value: NEGATIVE; Range: NEGATIVE; Units: mg/dL; Status: F Test: UROBILINOGEN, URINE AUTO; Value: 0.2; Range: 0.0-2.0; Units: mg/dL; Status: F Test: BILIRUBIN, URINE AUTO; Value: NEGATIVE; Range: NEGATIVE; Status: F Test: NITRITE, URINE AUTO; Value: NEGATIVE; Range: NEGATIVE; Status: F Test: LEUKOCYTE ESTERASE, URINE AUTO; Value: NEGATIVE; Range: NEGATIVE; Status: F Test: BLOOD, URINE BLOOD; Value: 2+; Range: NEGATIVE; Abnormal: Above high normal; Status: F Test: WBC, URINE AUTO; Value: 1; Range: 0-3; Units: /HPF; Status: F Test: RBC, URINE AUTO; Value: 3; Range: 0-3; Units: /HPF; Status: F Test: BACTERIA, URINE AUTO; Value: NEGATIVE; Range: NEGATIVE; Status: F Test: SQUAMOUS EPITHELIAL CELL UR AU; Value: 5; Range: 0-6; Units: /HPF; Status: F Test: MUCUS, URINE; Value: SMALL; Range: NEGATIVE; Status: F Test: HYALINE CAST, URINE AUTO; Value: 0; Range: 0-1; Units: /LPF; Status: F Lab Order: Urine Toxicology; SPEC'M 08/30/16 00:04 Test: AMPHETAMINES LEVEL URINE; Value: NEGATIVE; Range: NEGATIVE; Status: F Test: BARBITURATES URINE; Value: NEGATIVE; Range: NEGATIVE; Status: F Test: BENZODIAZEPINES URINE; Value: NEGATIVE; Range: NEGATIVE; Status: F Test: CANNABINOIDS URINE; Value: NEGATIVE; Range: NEGATIVE; Status: F Test: COCAINE METABOLITE URINE; Value: NEGATIVE; Range: NEGATIVE; Status: F Test: METHADONE URINE; Value: NEGATIVE; Range: NEGATIVE; Status: F Test: OPIATES URINE; Value: NEGATIVE; Range: NEGATIVE; Status: F Test: TRICYCLIC ANTIDEPRESS URINE; Value: NEGATIVE; Range: NEGATIVE; Status: F Test Note: ; ALL PRESUMPTIVE POSITIVE FINDINGS ARE UNCONFIRMED NORMAL VALUES THRESHOLD IN NG/ML AMPHETAMINES 1000 METHAMPHETAMINES 1000 BARBITURATES 300 BENZODIAZEPINES 300 CANNABINOIDS (THC) 50 COCAINE METABOLITE 300 METHADONE 300 OPIATES 300 PHENCYCLIDINE 25 TRICYCLIC ANTIDEPRESSANTS 1000 RESULTS ARE FOR MEDICAL PURPOSES ONLY. ALL URINE SPECIMENS WILL BE SAVED FOR 3 DAYS. IF CONFIRMATION OF A PRESUMPTIVE POSTIVE SCREEN RESULT IS DESIRED, CALL CHEMISTRY ([phone]) AND REQUEST URINE TO BE SENT TO REFERENCE LAB. FOR A LIST OF CLOSELY RELATED COMPOUNDS PLEASE CALL THE LAB. Lab Order: Amylase; SPEC'M 08/30/16 02:55 Test: AMYLASE; Value: 75; Range: 25-115; Units: U/L; Status: F Lab Order: Basic Metabolic Profile; SPEC'M 08/30/16 02:55 Test: GLUCOSE, FASTING; Value: 85; Range: 70-105; Units: MG/DL; Status: F Test: BLOOD UREA NITROGEN; Value: 16; Range: 7-18; Units: MG/DL; Status: F Test: CREATININE FOR GFR; Value: 0.73; Range: 0.55-1.02; Units: MG/DL; Status: F Test: SODIUM LEVEL; Range: 136-145; Units: MEQ/L; Status: I Test: POTASSIUM SERUM; Range: 3.5-5.1; Units: MEQ/L; Status: I Test: CHLORIDE LEVEL; Range: 98-107; Units: MEQ/L; Status: I Test: CARBON DIOXIDE LEVEL; Range: 21-32; Units: MEQ/L; Status: I Test: ANION GAP; Range: 8-16; Units: MEQ/L; Status: I Test: CALCIUM LEVEL; Range: 8.5-10.1; Units: MG/DL; Status: I Test: GLOMERULAR FILTRATION RATE; Value: > 60.0; Range: >60; Status: F Test: SODIUM LEVEL; Value: 146; Range: 136-145; Abnormal: Above high normal; Units: MEQ/L; Status: F Test: POTASSIUM SERUM; Value: 3.8; Range: 3.5-5.1; Units: MEQ/L; Status: F Test: CHLORIDE LEVEL; Value: 109; Range: 98-107; Abnormal: Above high normal; Units: MEQ/L; Status: F Test: CARBON DIOXIDE LEVEL; Value: 25; Range: 21-32; Units: MEQ/L; Status: F Test: ANION GAP; Value: 12; Range: 8-16; Units: MEQ/L; Status: F Test: CALCIUM LEVEL; Value: 8.0; Range: 8.5-10.1; Abnormal: Below low normal; Units: MG/DL; Status: F Test Note: ; Units are mL/min/1.73 m2 Chronic Kidney Disease Staging per NKF: Stage I & II GFR >=60 Normal to Mildly Decreased Stage III GFR 30-59 Moderately Decreased Stage IV GFR 15-29 Severely Decreased Stage V GFR <15 Very Little GFR Left ESRD GFR <15 on FLUX CORE WELDER Lab Order: CBC with Diff; SPEC'M 08/30/16 02:55 Test: WHITE BLOOD COUNT; Value: 5.7; Range: 4.0-10.0; Units: K/mm3; Status: F Test: RED BLOOD COUNT; Value: 3.97; Range: 4.00-5.40; Abnormal: Below low normal; Units: M/mm3; Status: F Test: HEMOGLOBIN; Value: 12.7; Range: 12.0-16.0; Units: g/dl; Status: F Test: HEMATOCRIT; Value: 35.3; Range: 36.0-47.0; Abnormal: Below low normal; Units: %; Status: F Test: MEAN CORPUSCULAR VOLUME; Value: 89.0; Range: 80.0-96.0; Units: fl; Status: F Test: MEAN CORPUSCULAR HEMOGLOBIN; Value: 31.9; Range: 27.0-33.0; Units: pg; Status: F Test: MEAN CORPUSCULAR HGB CONC; Value: 35.9; Range: 32.0-36.5; Units: g/dl; Status: F Test: RED CELL DISTRIBUTION WIDTH; Value: 12.5; Range: 11.5-14.5; Units: %; Status: F Test: PLATELET COUNT, AUTOMATED; Value: 244; Range: 150-450; Units: k/mm3; Status: F Test: NEUTROPHILS %; Value: 55.8; Range: 36.0-66.0; Units: %; Status: F Test: LYMPH %; Value: 36.8; Range: 24.0-44.0; Units: %; Status: F Test: MONO %; Value: 4.0; Range: 0.0-5.0; Units: %; Status: F Test: EOS %; Value: 1.0; Range: 0.0-3.0; Units: %; Status: F Test: BASO %; Value: 0.3; Range: 0.0-1.0; Units: %; Status: F Test: LARGE UNSTAINED CELL %; Value: 2.0; Range: 0.0-4.0; Units: %; Status: F Test: NEUTROPHILS #; Value: 3.2; Range: 1.8-7.7; Units: K/mm3; Status: F Test: LYMPH #; Value: 2.1; Range: 1.5-4.5; Units: K/mm3; Status: F Test: MONO #; Value: 0.2; Range: 0.0-0.8; Units: K/mm3; Status: F Test: EOS #; Value: 0.1; Range: 0.0-0.50; Units: K/mm3; Status: F Test: BASO #; Value: 0.0; Range: 0.0-0.2; Units: K/mm3; Status: F Test: LARGE UNSTAINED CELL #; Value: 0.1; Range: 0.0-0.4; Units: K/mm3; Status: F Lab Order: Lipase; SPEC'08/30/16 02:55 Test: LIPASE; Value: 193; Range: 73-393; Units: U/L; Status: F Lab Order: Liver Profile; SPEC08/30/16 02:55 Test: AST/SGOT; Value: 24; Range: 15-37; Units: U/L; Status: F Test: ALT/SGPT; Value: 29; Range: 12-78; Units: U/L; Status: F Test: ALKALINE PHOSPHATASE; Value: 59; Range: 45-117; Units: U/L; Status: F Test: BILIRUBIN,TOTAL; Value: 0.3; Range: 0.2-1.0; Units: MG/DL; Status: F Test: BILIRUBIN,DIRECT; Value: < 0.1; Range: 0.0-0.2; Units: MG/DL; Status: F Test: TOTAL PROTEIN; Value: 7.5; Range: 6.4-8.2; Units: GM/DL; Status: F Test: ALBUMIN; Value: 4.1; Range: 3.2-5.2; Units: GM/DL; Status: F Test: ALBUMIN/GLOBULIN RATIO; Value: 1.21; Range: 1.00-1.93; Status: F Lab Order: HCG,Serum Qualitative; 08/30/16 02:55 Test: HCG, SERUM QUALITATIVE; Value: NEGATIVE; Range: NEGATIVE; Status: F Lab Order: ETOH; SPEC'08/30/16 02:55 Test: ETHYL ALCOHOL (ETHANOL); Value: 0.221; Range: 0.000-0.010; Abnormal: Above high normal; Units: %; Status: F Radiology Order: CT ABD & PELVIS: No Contrast Test: CT ABD & PELVIS: No Contrast REASON FOR EXAMINATION: luq pain; ; CLINICAL HISTORY: Abdominal pain.; TECHNIQUE: Multiple axial, sagittal and coronal CT images were obtained through the abdomen and pelvi; s without administration of oral or IV contrast material.; COMMENTS:; The liver is of uniform attenuation without mass or defect. There is no intra or extrahepatic biliary; ductal dilatation. The spleen is normal. The gallbladder is surgically absent. The pancreas is of no; rmal contour and attenuation characteristics. There is no evidence of adrenal mass.; Mild fullness of the left collecting system.; The kidneys are normal in size, shape and configuration. No renal or ureteral calculi are identified.; There is no right hydroureter or hydronephrosis.; There is no evidence for appendicitis. There is no bowel wall thickening. No evidence for small or la; rge bowel obstruction. There is no evidence of abdominal ascites or lymphadenopathy.; There is no evidence of intrinsic or extrinsic bladder mass. There is no pelvic ascites or lymphadeno; della.; Images of the lung bases show no evidence of pleural or parenchymal mass. There are no pleural effusi; ons.; The bony structures are free of lytic or blastic lesions. Multilevel degenerative changes are seen in; volving the thoracolumbar spine.; Scattered calcifications are seen involving the aorta and major branches compatible with atherosclero; sis.; IMPRESSION:; Mild fullness of the left collecting system. Recent passage of a calculus versus an ascending urinary; tract infection.; Prior cholecystectomy.; Thank you for your kind referral of this patient.; ; Outcome: 05:22 Discharge ordered by Provider. mm11 05:45 Discharge Assessment: Patient awake, alert and oriented x 3. No cognitive and/or nn1 functional deficits noted. Patient verbalized understanding of disposition instructions. patient administered narcotics - yes. Pt provided with safe discharge. The following High Risk Discharge criteria are identified: None. Discharged to home ambulatory, with family. Condition: improved. CT Study completed. Property :Personal belongings accompany Pt. 05:49 Patient left the ED. nn1 Signatures: Dispatcher [employer] EDMS Patrizia Knowles, Reg Reg gb Lakesha Murray,RN RN lf1 Kavin Dumas DO DO mm11 Kosta Singh, FLOAT BUILDER FLOAT BUILDER dd6 Melisa Perez Shannon, RN RN sls1 Marilu Iverson, Saw Runner Unit Jeanie Alvarez NikkoleRN RN nn1 Chart Complete MTDD
== END 2016-08-30 05:49 | disposition home or self-care (01) ==
LOC: M ED 23:30
DX: F10.129 Alcohol abuse with intoxication, unspecified (principal); K29.20 Alcoholic gastritis without bleeding; I10 Essential (primary) hypertension; Z90.49 Acquired absence of other specified parts of digestive tract; Z72.0 Tobacco use; Z88.8 Allergy status to other drugs, medicaments and biological substances; Z91.041 Radiographic dye allergy status
CPT/HCPCS: 36415; 74176; 80048; 80076; 80306; 81001; 81025; 82150; 83690; 84703; 85025; 96374; 96375; 99284; G0480; J2405; J2765

== ENCOUNTER 2017-12-19 23:55 | Inpatient (IN) | payer OTHER ==
[2017-12-20] MEDS: NS 1,000 ML IV ×2 (00:15→04:40)
[2017-12-20 00:19] LABS: VENOUS BASE EXCESS -2.5 (-2.0-2.0); VENOUS HCO3 23.8 MEQ/L (23.0-27.0); VENOUS O2 SATURATION 60.3 % (60.0-80.0); VENOUS PARTIAL PRESSURE CO2 46.7 mmHg (38.0-50.0); VENOUS PARTIAL PRESSURE O2 34.2 mmHg (30.0-50.0); VENOUS PH 7.325 UNITS (7.330-7.430); VENOUS STANDARD HCO3 21.5 MEQ/L; VENOUS TOTAL CO2 25.2 MEQ/L (24.0-28.0)
[2017-12-20 00:20] LABS: BASO % 0.5 % (0.0-1.0); EOS % 0.4 % (0.0-3.0); HEMATOCRIT 38.4 % (36.0-47.0); HEMOGLOBIN 13.3 g/dl (12.0-15.5); IMMATURE GRANULOCYTE % 0.1 % (0-3.0); LYMPH # 2.6 10^3/uL (1.5-4.5); MEAN CORPUSCULAR HEMOGLOBIN 30.4 pg (27.0-33.0); MEAN CORPUSCULAR HGB CONC 34.6 g/dl (32.0-36.5); MEAN CORPUSCULAR VOLUME 87.7 fl (80.0-96.0); MONO # 0.5 10^3/uL (0.0-0.8); NEUTROPHILS # 4.1 10^3/uL (1.8-7.7); PLATELET COUNT, AUTOMATED 256 10^3/uL (150-450); RED BLOOD COUNT 4.38 10^6/uL (4.00-5.40); RED CELL DISTRIBUTION WIDTH 12.3 % (11.5-14.5); WHITE BLOOD COUNT 7.3 10^3/uL (4.0-10.0)
[2017-12-20 00:37] LABS: BEDSIDE GLUCOSE 86 MG/DL (70-105)
[2017-12-20 00:41] LABS: CONTROL LINE HCG INT CTR LINE PRESENT; HCG, SERUM QUALITATIVE NEGATIVE (NEGATIVE)
[2017-12-20] MEDS: CHARCOAL ACTIVATED LIQUID 25 GM/120 ML BTL PO (00:48)
[2017-12-20 00:55] LABS: ALBUMIN 4.4 GM/DL (3.2-5.2); ALBUMIN/GLOBULIN RATIO 1.19 (1.00-1.93); ALKALINE PHOSPHATASE 60 U/L (45-117); ALT/SGPT 27 U/L (12-78); ANION GAP 9 MEQ/L (8-16); AST/SGOT 26 U/L (7-37); BILIRUBIN,DIRECT < 0.1 MG/DL (0.0-0.2); BILIRUBIN,TOTAL 0.3 MG/DL (0.2-1.0); BLOOD UREA NITROGEN 15 MG/DL (7-18); CALCIUM LEVEL 8.6 MG/DL (8.5-10.1); CARBON DIOXIDE LEVEL 24 MEQ/L (21-32); CHLORIDE LEVEL 110 MEQ/L (98-107); CPK CREATINE PHOSPHOKINASE 339 U/L (26-192); CREATININE FOR GFR 0.78 MG/DL (0.55-1.30); ETHYL ALCOHOL (ETHANOL) 0.187 % (0.000-0.010); GLOMERULAR FILTRATION RATE > 60.0 (>60); GLUCOSE, FASTING 81 MG/DL (70-100); POTASSIUM SERUM 3.8 MEQ/L (3.5-5.1); SALICYLATE LEVEL 1.9 MG/DL (5.0-30.0); SODIUM LEVEL 143 MEQ/L (136-145); TOTAL PROTEIN 8.1 GM/DL (6.4-8.2)
[2017-12-20 00:56] LABS: ACETAMINOPHEN LEVEL < 2.0 UG/ML (10.0-30.0)
[2017-12-20 00:58] LABS: OSMOLALITY SERUM 339 MOSM/KG (275-295)
[2017-12-20 02:23] LABS: AMPHETAMINES LEVEL URINE NEGATIVE (NEGATIVE); BARBITURATES URINE NEGATIVE (NEGATIVE); BENZODIAZEPINES URINE NEGATIVE (NEGATIVE); CANNABINOIDS URINE NEGATIVE (NEGATIVE); COCAINE METABOLITE URINE NEGATIVE (NEGATIVE); METHADONE URINE NEGATIVE (NEGATIVE); OPIATES URINE NEGATIVE (NEGATIVE); PHENCYCLIDINE URINE NEGATIVE (NEGATIVE)
[2017-12-20] MEDS ORDERED: ONDANSETRON 4MG/2ML VIAL (J2405) As Ordered (02:36)
[2017-12-20] MEDS: ONDANSETRON 4MG/2ML VIAL (J2405) IV (02:38)
[2017-12-20] MEDS ORDERED: MOM 30ML SUSPENSION UDC PO (09:45)
[2017-12-20] MEDS ORDERED: traZODone 50 MG TAB PO (09:45)
[2017-12-20] MEDS: LORazepam 2 MG TAB PO (12:20)
[2017-12-20] MEDS ORDERED: LORazepam 2 MG TAB PO (17:15)
[2017-12-20] MEDS: THIAMINE 100 MG TAB PO (17:15)
[2017-12-20] MEDS ORDERED: diphenhydrAMINE 50 MG CAP PO (17:45)
[2017-12-20] MEDS: ACETAMINOPHEN TAB 650MG DOSE (2X325MG) PO (18:15)
[2017-12-20 20:11] LABS: ALBUMIN 3.9 GM/DL (3.2-5.2); ALBUMIN/GLOBULIN RATIO 1.18 (1.00-1.93); ALKALINE PHOSPHATASE 54 U/L (45-117); ALT/SGPT 24 U/L (12-78); ANION GAP 5 MEQ/L (8-16); AST/SGOT 25 U/L (7-37); BILIRUBIN,TOTAL 0.5 MG/DL (0.2-1.0); BLOOD UREA NITROGEN 10 MG/DL (7-18); CALCIUM LEVEL 8.5 MG/DL (8.5-10.1); CARBON DIOXIDE LEVEL 27 MEQ/L (21-32); CHLORIDE LEVEL 111 MEQ/L (98-107); CREATININE FOR GFR 0.83 MG/DL (0.55-1.30); GLOMERULAR FILTRATION RATE > 60.0 (>60); GLUCOSE, FASTING 83 MG/DL (70-100); SODIUM LEVEL 143 MEQ/L (136-145); TOTAL PROTEIN 7.2 GM/DL (6.4-8.2)
[2017-12-20] MEDS: GABAPENTIN 100 MG CAP PO (20:48)
[2017-12-21] MEDS: GABAPENTIN 100 MG CAP PO ×3 (08:04→20:53)
[2017-12-21] MEDS: MULTIVITAMINS/MINERALS THERAP 1 TAB PO (08:04)
[2017-12-21] MEDS: FOLIC ACID 1 MG TAB PO (08:04)
[2017-12-21] MEDS: THIAMINE 100 MG TAB PO ×2 (08:04→20:53)
[2017-12-21] MEDS: CitaloPRAM (CeleXA) 10 MG TABLET PO (15:30)
[2017-12-21] MEDS: ARIPiprazole 15 MG TAB (AbiLIFY) PO (20:53)
[2017-12-22] MEDS: FOLIC ACID 1 MG TAB PO (08:22)
[2017-12-22] MEDS: GABAPENTIN 100 MG CAP PO ×3 (08:22→20:34)
[2017-12-22] MEDS: MULTIVITAMINS/MINERALS THERAP 1 TAB PO (08:22)
[2017-12-22] MEDS: CitaloPRAM (CeleXA) 10 MG TABLET PO (08:22)
[2017-12-22] MEDS: THIAMINE 100 MG TAB PO ×2 (08:23→20:34)
[2017-12-22] MEDS: TELMISARTAN 20 MG TAB PO (13:43)
[2017-12-22] MEDS: RAMELTEON 8 MG TAB (ROZEREM) PO (20:32)
[2017-12-22] MEDS: ARIPiprazole 15 MG TAB (AbiLIFY) PO (20:33)
[2017-12-23] MEDS: diphenhydrAMINE 25 MG CAP PO ×2 (00:20→20:43)
[2017-12-23] MEDS: THIAMINE 100 MG TAB PO (08:22)
[2017-12-23] MEDS: TELMISARTAN 20 MG TAB PO (08:24)
[2017-12-23] MEDS: CitaloPRAM (CeleXA) 10 MG TABLET PO (08:24)
[2017-12-23] MEDS: MULTIVITAMINS/MINERALS THERAP 1 TAB PO (08:24)
[2017-12-23] MEDS: GABAPENTIN 100 MG CAP PO ×3 (08:24→20:33)
[2017-12-23] MEDS: FOLIC ACID 1 MG TAB PO (08:24)
[2017-12-23] MEDS: ARIPiprazole 15 MG TAB (AbiLIFY) PO (20:33)
[2017-12-23] MEDS: RAMELTEON 8 MG TAB (ROZEREM) PO (20:43)
[2017-12-24] MEDS: FOLIC ACID 1 MG TAB PO (08:33)
[2017-12-24] MEDS: CitaloPRAM (CeleXA) 10 MG TABLET PO (08:34)
[2017-12-24] MEDS: GABAPENTIN 100 MG CAP PO ×3 (08:36→20:29)
[2017-12-24] MEDS: TELMISARTAN 20 MG TAB PO (08:38)
[2017-12-24] MEDS: MULTIVITAMINS/MINERALS THERAP 1 TAB PO (08:38)
[2017-12-24] MEDS: ARIPiprazole 15 MG TAB (AbiLIFY) PO (20:29)
[2017-12-24] MEDS: RAMELTEON 8 MG TAB (ROZEREM) PO (20:29)
[2017-12-24] MEDS: PILL CRUSHER/CUTTER 1 EACH XX (20:30)
[2017-12-24] MEDS: diphenhydrAMINE 25 MG CAP PO (20:52)
[2017-12-25] MEDS: FOLIC ACID 1 MG TAB PO (08:08)
[2017-12-25] MEDS: GABAPENTIN 100 MG CAP PO ×3 (08:08→20:32)
[2017-12-25] MEDS: MULTIVITAMINS/MINERALS THERAP 1 TAB PO (08:08)
[2017-12-25] MEDS: TELMISARTAN 20 MG TAB PO (08:09)
[2017-12-25] MEDS: CitaloPRAM (CeleXA) 10 MG TABLET PO (08:09)
[2017-12-25] MEDS: diphenhydrAMINE 25 MG CAP PO (20:30)
[2017-12-25] MEDS: ARIPiprazole 15 MG TAB (AbiLIFY) PO (20:31)
[2017-12-25] MEDS: RAMELTEON 8 MG TAB (ROZEREM) PO (20:31)
[2017-12-26] MEDS: TELMISARTAN 20 MG TAB PO (08:06)
[2017-12-26] MEDS: FOLIC ACID 1 MG TAB PO (08:06)
[2017-12-26] MEDS: MULTIVITAMINS/MINERALS THERAP 1 TAB PO (08:06)
[2017-12-26] MEDS: GABAPENTIN 100 MG CAP PO (08:06)
[2017-12-26] MEDS: CitaloPRAM (CeleXA) 10 MG TABLET PO (08:06)
[2017-12-26] MEDS: MAALOX 30 ML SUSP *UDC PO (08:21)
== END 2017-12-26 09:55 | disposition home or self-care (01) | DRG 885 ==
LOC: M ED 23:55 → M ED INP 12-20 09:35 → M PSY 12-20 11:23
DX: F31.9 Bipolar disorder, unspecified (principal); F43.10 Post-traumatic stress disorder, unspecified; F60.89 Other specific personality disorders; F32.81 Premenstrual dysphoric disorder; Z79.899 Other long term (current) drug therapy; Z88.8 Allergy status to other drugs, medicaments and biological substances; Z91.041 Radiographic dye allergy status; I10 Essential (primary) hypertension; G47.00 Insomnia, unspecified; F17.200 Nicotine dependence, unspecified, uncomplicated

== ENCOUNTER → 2018-10-06 | Outpatient (CLI) | payer OTHER ==
[~2018-10-06] MED LIST: ABIL1TAB12 PO; ARIP15TAB PO; BENA25TA10 PO; CELE10TA PO; DIPH25CA PO; FOLI1TAB11 PO; GABA-1171 PO; IBUP1TAB7 PO; MELA1TAB15 PO; MICA40TA PO; ROZE8TAB16 PO; TYLE500T78 PO; VITMTA PO
--- NOTE | 2018-10-06 14:14 | REP ---
LEFT HAND COMPLETE: 10/06/2018. CLINICAL HISTORY: Trauma. Pain and limited range of motion, MCP 2nd digit. Four views are provided. Distal radius and ulna are unremarkable. Carpal bones and their joint spaces show no acute finding. Metacarpals do show a small spur at the CMC joint of the thumb. MCP joint also shows a tiny spur from the distal 1st metacarpal. The other MC joints and IP joints are unremarkable. Metacarpals and phalanges without fracture, avulsion, erosion, or other acute finding. Impression: 1. Minimal spurring about the 1st metacarpal proximally and distally without erosion, fracture, joint space narrowing, or other acute finding. Electronically Signed by Rios Mosqueda MD 10/06/2018 07:52 P
== END ==
LOC: M LRY 13:16
PROVIDERS: ATTEND Physician Assistant
DX: M25.742 Osteophyte, left hand (principal)

== ENCOUNTER → 2019-05-02 | Outpatient (CLI) | payer OTHER ==
[~2019-05-02] MED LIST changes: -ARIP15TAB PO; +ARIP1TAB10 PO; -DIPH25CA PO; +DIPH25CA32 PO
--- NOTE | 2019-05-03 11:17 | REP ---
NUCLEAR THYROID UPTAKE AND SCAN: Following the oral administration of 315 mcg Iodine 123 as sodium iodine, thyroid uptake is measured. 24 uptake is 67.5%, which is above the normal range of 25-35%. Thyroid scan shows mildly enlarged symmetrical thyroid lobes with diffuse increased uptake. There is no focal hot or cold nodule. IMPRESSION: Scintigraphic findings compatible with Graves disease. Electronically Signed by Bradley Gutierrez MD 05/03/2019 12:20 P
== END ==
LOC: M RAD 08:28
PROVIDERS: ATTEND Internal Medicine Endocrinology, Diabetes & Metabolism
DX: E05.00 Thyrotoxicosis with diffuse goiter without thyrotoxic crisis or storm (principal)
CPT/HCPCS: 78012; A9516

== ENCOUNTER → 2019-05-24 | Outpatient (CLI) | payer OTHER ==
[2019-05-24 16:32] LABS: FREE T4 1.22 NG/DL (0.76-1.46); THYROID STIMULATING HORMONE < 0.005 uIU/ML (0.358-3.740)
== END ==
LOC: M LAB 15:22
PROVIDERS: ATTEND Internal Medicine Endocrinology, Diabetes & Metabolism
DX: E04.9 Nontoxic goiter, unspecified (principal)

== ENCOUNTER 2019-08-07 10:28 | Emergency (ER) | payer OTHER ==
[~2019-08-07] VITALS: Ht 167.6 cm; Wt 96.9 kg
[2019-08-07] MEDS ORDERED: TELM1TAB (10:36)
[2019-08-07] MEDS ORDERED: TUMS500C PO (10:36)
[2019-08-07] MEDS ORDERED: CALC1CAP31 (10:36)
[2019-08-07 11:06] LABS: BASO % 0.5 % (0.0-1.0); EOS # 0.1 10^3/uL (0.0-0.5); EOS % 0.9 % (0.0-3.0); HEMATOCRIT 42.6 % (36.0-47.0); HEMOGLOBIN 14.2 g/dl (12.0-15.5); LYMPH # 2.9 10^3/uL (1.5-5.0); LYMPH % 37.5 % (24.0-44.0); MEAN CORPUSCULAR HEMOGLOBIN 28.6 pg (27.0-33.0); MEAN CORPUSCULAR HGB CONC 33.3 g/dl (32.0-36.5); MEAN CORPUSCULAR VOLUME 85.9 fl (80.0-96.0); MONO # 0.7 10^3/uL (0.0-0.8); MONO % 8.5 % (0.0-5.0); NEUTROPHILS % 52.5 % (36.0-66.0); PLATELET COUNT, AUTOMATED 265 10^3/uL (150-450); RED BLOOD COUNT 4.96 10^6/uL (4.00-5.40); WHITE BLOOD COUNT 7.7 10^3/uL (4.0-10.0)
[2019-08-07 11:37] LABS: BLOOD UREA NITROGEN 12 MG/DL (7-18); CALCIUM LEVEL 7.1 MG/DL (8.5-10.1); CARBON DIOXIDE LEVEL 30 MEQ/L (21-32); CHLORIDE LEVEL 102 MEQ/L (98-107); CREATININE FOR GFR 0.97 MG/DL (0.55-1.30); GLOMERULAR FILTRATION RATE > 60.0 (>60); GLUCOSE, FASTING 74 MG/DL (70-100); MAGNESIUM LEVEL 1.9 MG/DL (1.8-2.4); PHOSPHORUS LEVEL 5.6 MG/DL (2.5-4.9); POTASSIUM SERUM 3.9 MEQ/L (3.5-5.1); SODIUM LEVEL 138 MEQ/L (136-145)
[2019-08-07] MEDS ORDERED: CALCIUM GLUCONATE 1,000 MG in D5W MINI-BAG PLUS 100 ML IV ONE ×4 (12:45)
[2019-08-07 15:22] VITALS: BP 165/88
--- NOTE | 2019-08-07 15:36 | ECGEPIP ---
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
== END 2019-08-07 15:23 | disposition home or self-care (01) ==
LOC: M ED 10:28
DX: E83.51 Hypocalcemia (principal); F17.218 Nicotine dependence, cigarettes, with other nicotine-induced disorders; Z91.041 Radiographic dye allergy status; Z88.8 Allergy status to other drugs, medicaments and biological substances; I10 Essential (primary) hypertension
CPT/HCPCS: 80048; 82330; 83735; 84100; 85025; 93005; 96360; 96361; 99284; J0610

== ENCOUNTER → 2019-08-09 | Outpatient (CLI) | payer OTHER ==
[~2019-08-09] MED LIST changes: +CALC1CAP31; +TELM1TAB; +TUMS500C PO
[2019-08-09 11:03] LABS: BLOOD UREA NITROGEN 16 MG/DL (7-18); CALCIUM LEVEL 7.8 MG/DL (8.5-10.1); CARBON DIOXIDE LEVEL 27 MEQ/L (21-32); CHLORIDE LEVEL 103 MEQ/L (98-107); CREATININE FOR GFR 1.05 MG/DL (0.55-1.30); FREE T4 0.24 NG/DL (0.76-1.46); GLOMERULAR FILTRATION RATE > 60.0 (>60); GLUCOSE, FASTING 71 MG/DL (70-100); POTASSIUM SERUM 4.4 MEQ/L (3.5-5.1); SODIUM LEVEL 137 MEQ/L (136-145)
[2019-08-09 11:42] LABS: PTH INTACT 21.7 PG/ML (18.5-88.0)
== END ==
LOC: M LAB 09:23
PROVIDERS: ATTEND Registered Nurse
DX: E83.51 Hypocalcemia (principal); E05.00 Thyrotoxicosis with diffuse goiter without thyrotoxic crisis or storm

== ENCOUNTER → 2019-08-15 | Outpatient (CLI) | payer OTHER ==
[2019-08-15 13:05] LABS: BLOOD UREA NITROGEN 17 MG/DL (7-18); CALCIUM LEVEL 7.7 MG/DL (8.5-10.1); CARBON DIOXIDE LEVEL 26 MEQ/L (21-32); CHLORIDE LEVEL 106 MEQ/L (98-107); CREATININE FOR GFR 1.03 MG/DL (0.55-1.30); FREE T4 0.78 NG/DL (0.76-1.46); GLOMERULAR FILTRATION RATE > 60.0 (>60); GLUCOSE, FASTING 61 MG/DL (70-100); POTASSIUM SERUM 4.2 MEQ/L (3.5-5.1); PTH INTACT 29.3 PG/ML (18.5-88.0); SODIUM LEVEL 139 MEQ/L (136-145)
== END ==
LOC: M LAB 11:37
PROVIDERS: ATTEND Registered Nurse
DX: E83.51 Hypocalcemia (principal)

== ENCOUNTER → 2019-08-22 | Outpatient (CLI) | payer OTHER ==
[2019-08-22 10:29] LABS: BLOOD UREA NITROGEN 18 MG/DL (7-18); CALCIUM LEVEL 8.1 MG/DL (8.5-10.1); CARBON DIOXIDE LEVEL 24 MEQ/L (21-32); CHLORIDE LEVEL 107 MEQ/L (98-107); CREATININE FOR GFR 0.87 MG/DL (0.55-1.30); FREE T4 1.13 NG/DL (0.76-1.46); GLOMERULAR FILTRATION RATE > 60.0 (>60); GLUCOSE, FASTING 76 MG/DL (70-100); POTASSIUM SERUM 4.5 MEQ/L (3.5-5.1); SODIUM LEVEL 139 MEQ/L (136-145)
[2019-08-22 12:38] LABS: PTH INTACT 17.9 PG/ML (18.5-88.0)
== END ==
LOC: M LAB 09:04
PROVIDERS: ATTEND Registered Nurse
DX: E83.51 Hypocalcemia (principal)

== ENCOUNTER → 2019-09-11 | Outpatient (CLI) | payer OTHER ==
[2019-09-11 16:55] LABS: MAGNESIUM LEVEL 2.2 MG/DL (1.8-2.4)
[2019-09-11 17:05] LABS: TOTAL 25(OH) VITAMIN D 25.2 NG/ML (30.0-100.0)
== END ==
LOC: M LAB 15:27
PROVIDERS: ATTEND Internal Medicine Endocrinology, Diabetes & Metabolism
DX: E55.9 Vitamin D deficiency, unspecified (principal)

== ENCOUNTER → 2019-10-21 | Outpatient (CLI) | payer OTHER ==
[~2019-10-21] MED LIST changes: -TELM1TAB; +TELM1TAB35
[2019-10-21 15:47] LABS: CALCIUM LEVEL 7.5 MG/DL (8.5-10.1); FREE T4 1.41 NG/DL (0.76-1.46); THYROID STIMULATING HORMONE 0.384 uIU/ML (0.358-3.740)
[2019-10-21 15:50] LABS: TOTAL 25(OH) VITAMIN D 28.4 NG/ML (30.0-100.0)
== END ==
LOC: M LAB 14:06
PROVIDERS: ATTEND Nurse Practitioner Family
DX: E55.9 Vitamin D deficiency, unspecified (principal); E83.51 Hypocalcemia; E89.0 Postprocedural hypothyroidism

== ENCOUNTER → 2019-11-11 | Outpatient (CLI) | payer OTHER | LOC: M LAB 11:00 | PROVIDERS: ATTEND Nurse Practitioner Family | DX: E83.51 Hypocalcemia (principal) ==

== ENCOUNTER → 2023-09-12 | Outpatient (CLI) | payer OTHER ==
[~2023-09-12] MED LIST changes: +DIPH-435 PO; -DIPH25CA32 PO; +METHACHOLINE KIT INH ONE
[2023-09-12 10:42] LABS: BASO # 0.1 10^3/uL (0.0-0.2); BASO % 0.7 % (0.0-1.0); EOS # 0.1 10^3/uL (0.0-0.5); EOS % 1.3 % (0.0-3.0); HEMATOCRIT 40.1 % (36.0-47.0); HEMOGLOBIN 13.3 g/dl (12.0-15.5); LYMPH # 2.5 10^3/uL (1.5-5.0); LYMPH % 32.8 % (24.0-44.0); MEAN CORPUSCULAR HEMOGLOBIN 30.1 pg (27.0-33.0); MEAN CORPUSCULAR HGB CONC 33.2 g/dl (32.0-36.5); MEAN CORPUSCULAR VOLUME 90.7 fl (80.0-96.0); MONO # 0.5 10^3/uL (0.0-0.8); MONO % 6.8 % (2.0-8.0); NEUTROPHILS # 4.3 10^3/uL (1.5-8.5); NEUTROPHILS % 58.1 % (36.0-66.0); PLATELET COUNT, AUTOMATED 258 10^3/uL (150-450); RED BLOOD COUNT 4.42 10^6/uL (4.00-5.40); WHITE BLOOD COUNT 7.5 10^3/uL (4.0-10.0)
[2023-09-12 10:46] LABS: ERYTHROCYTE SEDIMENTATION RATE 21 mm/hr (0-20)
[2023-09-12 11:04] LABS: URIC ACID 4.3 MG/DL (3.1-7.8)
[2023-09-12 11:06] LABS: C REACTIVE PROTEIN QUANTITATIV < 0.40 MG/DL (<1.0)
[2023-09-12 11:07] LABS: ALBUMIN 3.8 G/DL (3.2-5.2); ALKALINE PHOSPHATASE 66 U/L (46-116); ALT/SGPT 20 U/L (7.0-40); AST/SGOT 23 U/L (<34); BILIRUBIN,TOTAL 0.4 MG/DL (0.3-1.2); BLOOD UREA NITROGEN 12 MG/DL (9-23); CALCIUM LEVEL 7.9 MG/DL (8.5-10.1); CARBON DIOXIDE LEVEL 29 MMOL/L (20-31); CHLORIDE LEVEL 105 MMOL/L (98-107); CREATININE FOR GFR 0.96 MG/DL (0.55-1.30); GLOMERULAR FILTRATION RATE > 60.0 (>58); GLUCOSE, FASTING 61 MG/DL (60-100); POTASSIUM SERUM 4.4 MMOL/L (3.5-5.1); SODIUM LEVEL 141 MMOL/L (136-145); TOTAL PROTEIN 6.9 G/DL (5.7-8.2)
[2023-09-12 11:08] LABS: RHEUMATOID FACTOR QUANT < 3.5 IU/ML (<14)
[2023-09-12 11:20] LABS: IMMUNOGLOBULIN E 3.4 IU/ML (0-378)
== END ==
LOC: M CARPUL 09:47
PROVIDERS: ATTEND Internal Medicine Pulmonary Disease
DX: R06.00 Dyspnea, unspecified (principal)
CPT/HCPCS: 36415; 80053; 82785; 84550; 85025; 85379; 85652; 86038; 86140; 86200; 86331; 86431; 86602; 86606; 86612; 86641; 86671; 86698; 94070; J7674

== ENCOUNTER 2023-10-17 07:58 | Day surgery (SDC) | payer OTHER ==
[~2023-10-17] VITALS: Ht 167.6 cm; Wt 113.9 kg
[~2023-10-17 07:58] MED LIST changes: +ACET-683 PO; +BUDE10.2 INH; +CITRTAB18 PO; +D-101000 PO; +IBUP-1022 PO; -METHACHOLINE KIT INH ONE; +SYNT112T2 PO; +TIZA2TA PO; +ceFAZolin SOD 2 GM in IV 1 EA IV ONE
[2023-10-17] MEDS ORDERED: LR 1,000 ML IV SCH (08:05)
[2023-10-17] MEDS ORDERED: dexmedeTOMIDine (4MCG/ML)200MCG/50ML BTL (PRECEDEX) As Ordered ONE (09:07)
[2023-10-17] MEDS ORDERED: LIDOCAINE 2% 100MG/5ML SDV (FOR ANES.) As Ordered ONE (09:07)
[2023-10-17] MEDS ORDERED: propofoL 200 MG/20 ML VIAL As Ordered ONE (09:07)
[2023-10-17] MEDS ORDERED: ONDANSETRON 4MG 2ML VIAL As Ordered ONE (09:07)
[2023-10-17] MEDS ORDERED: MIDAZOLAM INJ 2MG/2ML VIAL As Ordered ONE (09:08)
[2023-10-17] MEDS ORDERED: fentaNYL 100 MCG/2 ML INJECTION As Ordered ONE (09:08)
[2023-10-17] MEDS ORDERED: POVIDONE-IODINE 5% OPHTH PREP SOL 30ML As Ordered ONE (10:34)
[2023-10-17] MEDS: LIDOCAINE 2% W/EPINEPHRINE 20ML VIAL **PRES FREE As Ordered ONE (11:35)
[2023-10-17] MEDS ORDERED: BACITRACIN OINTMENT 30GM TUBE As Ordered ONE (11:43)
[2023-10-17 11:53] VITALS: BP 111/64; TEMP 96.8; O2SAT 95
== END 2023-10-17 12:16 | disposition home or self-care (01) ==
LOC: M SDC 07:58
PROVIDERS: ATTEND Plastic Surgery Surgery of the Hand
DX: C44.319 Basal cell carcinoma of skin of other parts of face (principal); I10 Essential (primary) hypertension; E66.9 Obesity, unspecified; K21.9 Gastro-esophageal reflux disease without esophagitis; Z87.891 Personal history of nicotine dependence; Z88.8 Allergy status to other drugs, medicaments and biological substances; Z91.041 Radiographic dye allergy status; Z79.899 Other long term (current) drug therapy
CPT/HCPCS: 11642; 88305; J2250; J2405; J3010

== ENCOUNTER 2023-11-14 06:10 | Day surgery (SDC) | payer OTHER ==
[~2023-11-14] VITALS: Ht 167.6 cm; Wt 113.4 kg
[~2023-11-14 06:10] MED LIST changes: +ALBU8.5H; -CALC1CAP31; +CALC1CAP31 PO; +LISI5TAB11 PO; +MONT-5 PO; +PHEN-239 PO; -ceFAZolin SOD 2 GM in IV 1 EA IV ONE
[2023-11-14] MEDS ORDERED: LR 1,000 ML IV SCH ×2 (06:45→09:45)
[2023-11-14 06:48] LABS: HEMATOCRIT 37.7 % (36.0-47.0); HEMOGLOBIN 12.6 g/dl (12.0-15.5); MEAN CORPUSCULAR HEMOGLOBIN 29.8 pg (27.0-33.0); MEAN CORPUSCULAR HGB CONC 33.4 g/dl (32.0-36.5); MEAN CORPUSCULAR VOLUME 89.1 fl (80.0-96.0); PLATELET COUNT, AUTOMATED 222 10^3/uL (150-450); RED BLOOD COUNT 4.23 10^6/uL (4.00-5.40); WHITE BLOOD COUNT 6.5 10^3/uL (4.0-10.0)
[2023-11-14] MEDS ORDERED: POLYSPORIN OPHTH OINT 3.5 GM As Ordered ONE (07:10)
[2023-11-14 07:19] LABS: BLOOD UREA NITROGEN 14 MG/DL (9-23); CALCIUM LEVEL 7.2 MG/DL (8.5-10.1); CARBON DIOXIDE LEVEL 28 MMOL/L (20-31); CHLORIDE LEVEL 111 MMOL/L (98-107); CREATININE FOR GFR 0.85 MG/DL (0.55-1.30); GLOMERULAR FILTRATION RATE > 60.0 (>58); GLUCOSE, FASTING 81 MG/DL (60-100); POTASSIUM SERUM 4.1 MMOL/L (3.5-5.1); SODIUM LEVEL 139 MMOL/L (136-145)
[2023-11-14] MEDS ORDERED: dexmedeTOMIDine (4MCG/ML)200MCG/50ML BTL (PRECEDEX) As Ordered ONE (07:27)
[2023-11-14] MEDS ORDERED: MIDAZOLAM INJ 2MG/2ML VIAL As Ordered ONE (07:27)
[2023-11-14] MEDS ORDERED: LIDOCAINE 2% 100MG/5ML SDV (FOR ANES.) As Ordered ONE (07:43)
[2023-11-14] MEDS ORDERED: propofoL 200 MG/20 ML VIAL As Ordered ONE (07:43)
[2023-11-14] MEDS ORDERED: fentaNYL 100 MCG/2 ML INJECTION As Ordered ONE (07:45)
[2023-11-14] MEDS: ceFAZolin SOD 2 GM in IV 1 EA IV ONE (07:51)
[2023-11-14] MEDS ORDERED: LACRILUBE (AKWA TEARS) OPHTH OINT 3.5GM As Ordered ONE (07:57)
[2023-11-14] MEDS ORDERED: ePHEDrine SULFATE 25 MG/5 ML(5MG/ML) SYRINGE As Ordered ONE (08:04)
[2023-11-14] MEDS: LIDOCAINE 2% W/EPINEPHRINE 20ML VIAL **PRES FREE As Ordered ONE (08:09)
[2023-11-14] MEDS ORDERED: PHENYLephrine 500MCG 5ML (100MCG/ML) SYRINGE As Ordered ONE (08:25)
[2023-11-14] MEDS ORDERED: SEVOFLURANE INHAL SOLN 250 ML BTL As Ordered ONE (08:35)
[2023-11-14] MEDS ORDERED: ACETAMINOPHEN 1000MG 100ML IV BAG As Ordered ONE (09:18)
[2023-11-14] MEDS: BACITRACIN OINTMENT 30GM TUBE As Ordered ONE (09:33)
[2023-11-14] MEDS ORDERED: HYDROMORPHONE HCL 0.5 MG/ 0.5 ML SYRINGE IV PRN (09:45)
[2023-11-14] MEDS ORDERED: oxyCODONE 5MG TAB PO PRN (09:45)
[2023-11-14] MEDS ORDERED: fentaNYL 100 MCG/2 ML INJECTION IV PRN (09:45)
[2023-11-14] MEDS: ONDANSETRON 4MG 2ML VIAL IV PRN (11:09)
[2023-11-14 11:25] VITALS: BP 127/71; TEMP 97.8; O2SAT 97
== END 2023-11-14 11:30 | disposition home or self-care (01) ==
LOC: M SDC 06:10
PROVIDERS: ATTEND Plastic Surgery Surgery of the Hand
DX: C44.319 Basal cell carcinoma of skin of other parts of face (principal); E89.0 Postprocedural hypothyroidism; J45.909 Unspecified asthma, uncomplicated; Z79.890 Hormone replacement therapy; Z79.899 Other long term (current) drug therapy; Z88.8 Allergy status to other drugs, medicaments and biological substances; Z91.041 Radiographic dye allergy status
CPT/HCPCS: 11643; 12051; 36415; 80048; 85027; 88305; J0131; J0690; J1100; J2250; J2371; J2405; J3010

== ENCOUNTER → 2023-12-26 | Outpatient (REF) | payer OTHER | LOC: M SFHCRHEU 15:17 | PROVIDERS: ATTEND Internal Medicine | DX: M25.50 Pain in unspecified joint (principal) ==

== ENCOUNTER → 2024-01-11 | Outpatient (CLI) | payer OTHER | LOC: M PLAIMG 12:28 | PROVIDERS: ATTEND Internal Medicine | DX: M85.68 Other cyst of bone, other site (principal); R93.6 Abnormal findings on diagnostic imaging of limbs ==

== ENCOUNTER → 2024-10-18 | Outpatient (CLI) | payer OTHER | LOC: M SOG 07:51 | PROVIDERS: ATTEND Physician Assistant | DX: M25.532 Pain in left wrist (principal) ==

== ENCOUNTER 2024-12-03 06:12 | Day surgery (SDC) | payer OTHER ==
[~2024-12-03] VITALS: Ht 167.6 cm; Wt 49.0 kg
[~2024-12-03 06:12] MED LIST changes: +AMIT50TA PO; +FAMO1TAB11 PO; +MONT10TA97 PO; +OMEP-173 PO; +PHEN37.58 PO; +RIZA10TA58 PO; +VITA100093 PO
[2024-12-03] MEDS ORDERED: fentaNYL 250 MCG/5 ML INJECTION As Ordered ONE (07:04)
[2024-12-03] MEDS ORDERED: MIDAZOLAM INJ 2MG/2ML VIAL As Ordered ONE (07:04)
[2024-12-03] MEDS ORDERED: LIDOCAINE 2% 100MG/5ML SDV (FOR ANES.) As Ordered ONE (07:05)
[2024-12-03] MEDS ORDERED: METOCLOPRAMIDE INJ 10MG/2ML VIAL As Ordered ONE (07:05)
[2024-12-03] MEDS ORDERED: propofoL 200 MG/20 ML VIAL As Ordered ONE (07:05)
[2024-12-03] MEDS ORDERED: ONDANSETRON 4MG 2ML VIAL As Ordered ONE (07:05)
[2024-12-03] MEDS ORDERED: KETOROLAC 30 MG/ML 1ML VIAL As Ordered ONE (07:05)
[2024-12-03] MEDS ORDERED: LR 1,000 ML IV SCH ×2 (07:05→08:20)
[2024-12-03] MEDS ORDERED: ACETAMINOPHEN 1000MG/100ML IV BAG As Ordered ONE (07:06)
[2024-12-03] MEDS: ceFAZolin SODIUM 2 GM VIAL As Ordered ONE (07:48)
[2024-12-03] MEDS: LIDOCAINE 1% SDV 30ML VIAL As Ordered ONE (08:00)
[2024-12-03] MEDS ORDERED: fentaNYL 100 MCG/2 ML INJECTION IV PRN (08:20)
[2024-12-03] MEDS ORDERED: ONDANSETRON 4MG 2ML VIAL IV PRN (08:20)
[2024-12-03] MEDS ORDERED: SUZE50TA PO (08:32)
[2024-12-03 08:58] VITALS: BP 127/77; TEMP 97.3; O2SAT 98
== END 2024-12-03 09:19 | disposition home or self-care (01) ==
LOC: M SDC 06:12
PROVIDERS: ATTEND Neuromusculoskeletal Medicine, Sports Medicine
DX: G56.02 Carpal tunnel syndrome, left upper limb (principal); E03.9 Hypothyroidism, unspecified; K21.9 Gastro-esophageal reflux disease without esophagitis; G43.909 Migraine, unspecified, not intractable, without status migrainosus; J45.909 Unspecified asthma, uncomplicated; Z88.8 Allergy status to other drugs, medicaments and biological substances; Z91.040 Latex allergy status; Z91.041 Radiographic dye allergy status; Z79.51 Long term (current) use of inhaled steroids; Z79.899 Other long term (current) drug therapy
CPT/HCPCS: 64721; J0131; J0690; J1100; J1885; J2250; J2405; J2765; J3010

== ENCOUNTER → 2025-03-11 | Outpatient (CLI) | payer OTHER ==
[~2025-03-11] MED LIST changes: -PHEN-239 PO; +PHEN37.511 PO; +SUZE50TA PO
== END ==
LOC: M LAB 10:57
PROVIDERS: ATTEND Internal Medicine
DX: R76.0 Raised antibody titer (principal)

== ENCOUNTER → 2025-03-14 | Outpatient (REF) | payer OTHER ==
[2025-03-17 12:02] LABS: ANTI CENTROMERE ANTIBODY <1.0 NEG AI (<1.0 NEG); SSA SJOGRENS A <1.0 NEG AI (<1.0 NEG); SSB SJOGRENS B <1.0 NEG AI (<1.0 NEG)
== END ==
LOC: M SFHCRHEU 11:20
PROVIDERS: ATTEND Internal Medicine
DX: I73.00 Raynaud's syndrome without gangrene (principal)